=== PATIENT | male | born 1955 | race Caucasian/White ===

== ENCOUNTER 2022-07-12 08:00 | Outpatient (RCR) | payer MEDICARE, BC, SELFPAY ==
--- NOTE | 2022-05-09 15:20 | PT.OPEX ---
PT [place] [facility] Eval PT [facility] Out[facility] Eval Start: 05/09/22 13:11 Freq: Status: Active Protocol: Document 05/09/22 13:13 ENM (Rec: 05/09/22 15:12 ENM [id number]) E-signed By Rita Samayoa, DPT Physical Therapy Outpatient Evaluation Insurance Information Recert Due Date 08/01/22 Insurance Name Medicare B Medical Diagnosis bursitis of right shoulder Treating Diagnosis right shoulder pain, decreased shoulder ROM, hypomobile glenohumeral joint, hypomobility thoracic spine, impaired posture, decreased shoulder strength Referring MD Cazares Subjective Subjective Patient presents to PT with a history of right chronic anterior shoulder pain. He saw in April where an xray was performed, no significant findings on image These show normal glenohumeral joint space without narrowing or osteophytic spurring. No proximal migration of the humeral head. He has a history for previous arthroscopy surgery of right shoulder that included subacromial decompression and distal clavicle excision (, Dr. Fisher). Patient states that the shoulder aches all the time and is uncomfortable in sitting and laying at night. 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 He reports that he doesn't have much strength left in the shoulders. Often he hears the shoulders cracking while he is doing activities. 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 No pain with resisted horizontal abduction Cervical flexion, ext, SB and rot with stiffness throughout but no shoulder pain Strength: shoulder flexion 4-/5 B pains B shoulder abduction 4-/5 B shoulder IR0 4-/5 shoulder ER0 4-/5 Palpation/joint mobility: posterior and inferior glide of GHJ hypomobile bilaterally, stiffer on R compared to L. Significant limitations in posterior capsule in sidelying IR CPA and UPA thoracic spine significant hypomobility + for pain with palpation over ACJ and biceps tendon Special tests: neers + for R anterior shoulder pain medina demarco + for R anterior shoulder pain obriens + for pain with IR that improved with ER speeds - B yergasons - Posture: protracted shoulders and increased thoracic kyphosis Functional Test Performed & Score SPADI: pain 23/50 46% disability 880 10% total 31/130 Assessment Assessment/Impression Patient is a 67 year old male presenting with chronic pain of the right shoulder. Patient had a R shoulder arthroscopy surgery in 2000 which improved shoulder pains for a while. Then 2 years ago pains of the shoulder came back. Since then pains have always been present making it difficult to perform daily activities, sit or sleep at night. Most pain and difficulty with reaching overhead. Upon assessment patients concordant pains brought on with shoulder ROM and palpation of R ACJ/ biceps tendon. Shoulder ROM limited into all planes with pain brought on during active elevation. Patient with significant hypomobility of GHJ with joint mobilizations and tightness of posterior capsule noted. No pains with resisted manual muscle testing . Special testing + for neers, medina demarco and Obriens. Francisco displays a kyphotic posture with notable stiffness of thoracic spine with PA assessment. Symptoms consistent with subacromial pain syndrome. Patient would greatly benefit from skilled PT to address impairments stated above in order to be able to perform all work duties and self cares /ADLS without significant discomfort or difficulty. Primary Functional Limitations reaching, sitting, laying, Plan of Care Rehabilitation Potential Good Physical Therapy Goals In 6-8 visits: 1. Patient will be IND with HEP and self management of symptoms 2. Patient will display pain free shoulder ROM by > 5 degs in order to perform all self cares and ADLS without significant discomfort or difficulty 3. Patient will be able to comfortably lay at night with less than 3/10 shoulder pain for improved sleep hygiene 4. 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 Patient will improve SPADI from 31 to 18 (MDC 13) to demonstrate improvements in QOL Coordination/Communication With Referral Source Treatment Plan/Direct Interventions Electrical Stimulation,Joint Mobilization,Manual Therapy, Neuromuscular Re-ed,Self-Care/ Home Management,Therapeutic Activities,Therapeutic Exercises Frequency/Duration 1x a week for 6 weeks, as needed for 2-3 visits Patient Will Be Discharged From Therapy Completion of LTG(s), Independent w/HEP Evaluation Billing Untimed Code Treatment Minutes 30 Complexity Low Certification Information Initial Certification Date 05/09/22 Ending Certification Date 08/01/22 Provider Signature Shows Agreement With POC & Medical Necessity Physician Comment/Change Comment or Changes Physician NPI Number #
== END 2022-07-14 15:32 | disposition home or self-care (01) ==
PROVIDERS: PCP Nurse Practitioner; Visit Provider Orthopaedic Surgery
DX: M75.51 Bursitis of right shoulder (principal); Z51.89 Encounter for other specified aftercare
CPT/HCPCS: 97110; 97140; 97161

== ENCOUNTER 2025-05-06 12:26 | Inpatient (IN) | payer MEDICARE, BC, SELFPAY ==
[2025-05-06] VITALS (20 sets, daily range): BP systolic 156–183; BP diastolic 61–83; PULSE 51–77; RESP 16–18; TEMP 36.5–36.6; O2SAT 91–98; BMI 34.2; BMI 34.3
--- NOTE | 2025-05-06 13:23 | ED.ABDPAIN ---
HPI - Abdominal Pain General Time Seen by Provider: 13:23 Date Seen: 05/06/25 Chief Complaint: Abdominal Pain Stated Complaint: Abdominal pain Time Seen by Provider: 05/06/25 13:22 Source: patient and RN notes reviewed Mode of arrival: ambulatory Limitations: no limitations History of Present Illness HPI narrative: This 70-year-old male is coming in with complaint of abdominal pain starting early this morning. It woke him early from sleep today. It is central in goes throughout his abdomen. He feels bloated. He was able to be breakfast but is no longer hungry, did not eat lunch. He has had no nausea vomiting, no dysuria, no fevers or chills. He had a normal bowel movement this morning. He states that he has had colonoscopy before he does not believe he is had any prior abdominal surgeries. He has hyperlipidemia, hypertension. He states only takes a multivitamin high blood pressure medicine and cholesterol medicine. MD elicited complaint: abdominal pain Related Data Home Medications ?Medication ?Instructions ?Recorded ?Confirmed amlodipine 5 mg tablet 5 mg PO DAILY 04/25/22 05/06/25 doxazosin 8 mg tablet 8 mg PO HS 04/25/22 05/06/25 lansoprazole 30 mg capsule,delayed 30 mg PO DAILY 04/25/22 05/06/25 release multivitamin (Multiple Vitamins 1 tab PO QAM 04/25/22 05/06/25 tablet) chlorthalidone 25 mg tablet 12.5 mg PO QAM 05/06/25 05/06/25 losartan 100 mg tablet 100 mg PO DAILY 05/06/25 rosuvastatin 10 mg tablet 10 mg PO HS 05/06/25 05/06/25 Allergies Allergy/AdvReac Type Severity Reaction Status Date / Time lisinopril Allergy Unknown Unknown Verified 05/06/25 12:34 Review of Systems Status of ROS Reports: 6 or more systems reviewed and unremarkable except as noted in History and below [facility] Medical History (Updated 05/07/25 @ 11:46 by Rafal Garcia MD) Hyperlipidemia ?E78.5 - Hyperlipidemia, unspecified (ICD-10) Surgical History History of arthroscopy of right shoulder (07/17/01) ?Z98.890 - Other specified postprocedural states (ICD-10) History of arthroscopy of left shoulder (08/14/07) ?Z98.890 - Other specified postprocedural states (ICD-10) History of carpal tunnel surgery of right wrist (06/19/12) ?Z98.890 - Other specified postprocedural states (ICD-10) History of carpal tunnel surgery of left wrist (07/15/15) ?Z98.890 - Other specified postprocedural states (ICD-10) 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) ?Z96.652 - Presence of left artificial knee joint (ICD-10) Status post right knee replacement (03/22/21) ?Z96.651 - Presence of right artificial knee joint (ICD-10) Social History Narrative: Hx tobacco use What is your current living situation?: I presently have a place to live Problems where you live: no known problems In the past 12 months, utilities in danger of being shut off: no In past 12 months, lack of transportation kept you from medical appts, meetings, work, or getting things needed for daily living: no In the past 12 mos, have been you worried that your food would run out before you had money to buy more?: never true In the past 12 mos, the food you bought just didn't last and you didn't have money to buy more?: never true Smoking Status: Former smoker Do you use any of these nicotine containing products: Smokeless Tobacco Nicotine containing products detail: chewing tobacco How often do you have a drink containing alcohol: never How often do you have six or more drinks on one occasion: Never AUDIT-C Alcohol total score: 0 Non-prescribed substance use: denies use How often does anyone, including family, friends and others, physically hurt you: never How often does anyone, including family, friends and others, insult or talk down to you: never How often does anyone, including family, friends and others, threaten you with harm: never How often does anyone, including family, friends and others, scream or curse at you: never Exam Const: Vital Signs, click to edit/add: Vital Signs - 24 hr 05/06/25 14:32 05/06/25 14:33 05/06/25 14:34 Temperature Pulse Rate 60 59 L 60 Pulse Rate [Pulse Oximeter] Respiratory Rate Blood Pressure 177/78 H Blood Pressure [Le ft Arm] Pulse Oximetry 97 94 95 Oxygen Delivery Me thod 05/06/25 14:35 05/06/25 14:45 05/06/25 15:02 Temperature 97.9 F Pulse Rate 59 L 62 Pulse Rate [Pulse Oximeter] Respiratory Rate Blood Pressure 166/78 H Blood Pressure [Le ft Arm] Pulse Oximetry 95 95 Oxygen Delivery Me thod 05/06/25 15:08 05/06/25 15:30 05/06/25 16:00 Temperature Pulse Rate 74 56 L 55 L Pulse Rate [Pulse Oximeter] Respiratory Rate Blood Pressure Blood Pressure [Le ft Arm] Pulse Oximetry 94 91 97 Oxygen Delivery Me thod 05/06/25 16:02 05/06/25 16:15 05/06/25 16:30 Temperature Pulse Rate 63 57 L 57 L Pulse Rate [Pulse Oximeter] Respiratory Rate 16 Blood Pressure 168/83 H Blood Pressure [Le ft Arm] Pulse Oximetry 96 97 96 Oxygen Delivery Ri thod 05/06/25 16:45 05/06/25 17:19 05/06/25 17:19 Temperature 97.7 F Pulse Rate 61 Pulse Rate [Pulse Oximeter] 77 Respiratory Rate 17 17 Blood Pressure Blood Pressure [Le ft Arm] 180/70 H Pulse Oximetry 96 97 97 Oxygen Delivery Me thod Room Air Room Air This 70-year-old male is alert, interactive, no apparent distress. Despite his discomfort he is smiling, very pleasant. Sclera clear, face atraumatic. Neck thicker but note no jugular venous distention or masses. Lungs are clear, good air entry, no wheezing or crackles, no tachypnea, no accessory muscle use. CV regular rate and rhythm, no murmur, normal S1-S2, no S3-S4. Abdomen does look maybe mildly distended, cannot hear any bowel sounds. He has more left upper and lower abdominal tenderness but states he feels the bloating in the discomfort more centrally across his upper abdomen. There is no rebound or guarding per se, no organomegaly or masses noted. No jaundice of skin noted. Documenting provider has reviewed patient's vital signs: yes Course Course ED Course: He is having abdominal pain with bloating, is tender on the left side. Do think he needs CT imaging which will be ordered. He does feel he is uncomfortable enough that he would like some pain management. We will establish an IV, get blood work, have mom pulse oximetry and give him Zofran and morphine for symptom control. I do wonder about diverticulitis with him. If he is colonoscopy is up-to-date makes things like colon cancer or colon masses less likely. He has no urinary symptoms and history does not seem to be consistent with that. We will be checking a lipase and liver enzymes in case of atypical presentation of other intra-abdominal etiologies. Certainly the CT scan in the labs will help point us to our correct diagnosis. Reevaluation(s) Time of Reevaluation #1: 14:04 Reevaluation #1: Nursing staff reports that the just given morphine about 10 minutes ago and patient's pain is escalating, they report he seems quite uncomfortable. We are going to give 0.5 mg IV Dilaudid. We will also have them obtain an EKG. I have done a lab add on troponin just in case this is some atypical vascular presentation. Time of Reevaluation #2: 16:08 Reevaluation #2: Reviewed CT report with patient. He does have duodenitis and pancreatitis. Have ordered 40 mg IV Protonix. His pain is okay right now. He should be hospitalized, will need IV fluids, IV pain management. We did discuss potential complications of abscess and pseudocyst of pancreatitis. Reviewed with them that it is not likely to be surgical, they had questioned if this was a surgical abdominal issue. I said as a general rule it is not. Patient does not drink any alcohol. He does take cholesterol medicine. He still has his gallbladder, he has not had abdominal surgeries. Consultations Consultation #1: Did talk to hospitalist Priya Vora. She accepts patient. Time: 16:14 Vital Signs Vital signs: Initial Vital Signs Temperature 97.9 F 05/06/25 12:30 Temperature Source Temporal Artery Scan 05/06/25 12:30 Pulse Rate 55 L 05/06/25 12:30 Respiratory Rate 18 05/06/25 12:30 Blood Pressure 157/79 H 05/06/25 12:30 Blood Pressure Mean 105 05/06/25 12:30 Blood Pressure Position Sitting 05/06/25 12:30 Pulse Oximetry 97 05/06/25 12:30 Oxygen Delivery Method Room Air 05/06/25 12:30 Vital Signs Temperature 97.9 F 05/06/25 12:30 Pulse Rate 55 L 05/06/25 12:30 Respiratory Rate 18 05/06/25 12:30 Blood Pressure 157/79 H 05/06/25 12:30 Pulse Oximetry 97 05/06/25 12:30 Oxygen Delivery Method Room Air 05/06/25 12:30 Temperature 98.3 F 05/07/25 10:25 Pulse Rate 74 05/07/25 10:25 Respiratory Rate 18 05/07/25 10:25 Blood Pressure 149/66 H 05/07/25 10:25 Pulse Oximetry 94 05/07/25 10:25 Oxygen Delivery Method Room Air 05/07/25 10:25 Medications Administered Medications: Generic Name Dose Route Start Last Admin Trade Name Freq PRN Reason Stop Dose Admin Acetaminophen 650 - 975 mg 05/06/25 20:42 05/07/25 05:17 Acetaminophen 325 Mg Tablet PO 975 mg Q6H PRN Administration Amlodipine Besylate 5 mg 05/07/25 09:00 05/07/25 08:50 Amlodipine 5 Mg Tablet PO 5 mg DAILY AMY Administration Chlorthalidone 12.5 mg 05/07/25 09:00 05/07/25 08:55 Chlorthalidone 25 Mg Tablet PO Not Given On Hold: 05/07/25 10:55 QAM AMY Doxazosin Mesylate 8 mg 05/06/25 21:00 05/06/25 20:19 Doxazosin 4 Mg Tablet PO 8 mg HS AMY Administration Enoxaparin Sodium 40 mg 05/06/25 21:00 05/06/25 20:18 Enoxaparin 40 Mg/0.4 Ml Inj SUBCUT 40 mg HS AMY Administration Hydromorphone HCl 0.2 - 0.5 mg 05/06/25 18:22 05/07/25 00:50 Hydromorphone 0.5 Mg/0.5 Ml Inj IVP 0.5 mg Q2H PRN Administration severe Pain Sodium Chloride 1,000 mls @ 100 mls/hr 05/07/25 08:05 05/07/25 10:00 0.9 % Sodium Chloride 1000 Ml IV 100 mls/hr .Q10H AMY Administration Losartan Potassium 100 mg 05/07/25 09:00 05/07/25 09:04 Losartan Potassium 50 Mg Tablet PO Not Given DAILY AMY Ondansetron HCl 4 mg 05/06/25 18:22 05/06/25 18:37 Ondansetron 2 Mg/Ml Inj IVP 4 mg Q4H PRN Administration Nausea Pantoprazole Sodium 40 mg 05/07/25 09:00 05/07/25 08:52 Pantoprazole Sodium 40 Mg Inj IVP 40 mg DAILY AMY Administration Rosuvastatin Calcium 10 mg 05/06/25 21:00 05/06/25 20:18 Rosuvastatin Calcium 10 Mg Tablet PO 10 mg HS AMY Administration Sodium Chloride 5 ml 05/06/25 21:00 05/07/25 08:52 Sodium Chloride 0.9 % (Flush) 10 Ml Syringe IVF 5 ml BID AMY Administration Discontinued Medications Generic Name Dose Route Start Last Admin Trade Name Freq PRN Reason Stop Dose Admin Hydromorphone HCl 0.5 mg 05/06/25 14:03 05/06/25 14:05 Hydromorphone 0.5 Mg/0.5 Ml Inj IVP 05/06/25 14:04 0.5 mg ONCE ONE Administration Hydromorphone HCl 0.5 mg 05/06/25 17:32 05/06/25 18:06 Hydromorphone 0.5 Mg/0.5 Ml Inj IVP 05/06/25 17:33 0.5 mg ONCE ONE Administration Sodium Chloride 1,000 mls @ 500 mls/hr 05/06/25 13:32 05/06/25 14:36 0.9 % Sodium Chloride 1000 Ml IV 05/06/25 15:31 Infused .Q2H AMY Infusion Acetaminophen 1,000 mg in 100 mls @ 400 mls/hr 05/06/25 14:33 05/06/25 15:00 Acetaminophen Inj IVPB 05/06/25 14:47 Infused ONCE ONE Infusion Sodium Chloride 1,000 mls @ 125 mls/hr 05/06/25 18:22 05/07/25 08:52 0.9 % Sodium Chloride 1000 Ml IV 100 mls/hr .Q8H AMY Infusion Morphine Sulfate 4 mg 05/06/25 13:29 05/06/25 13:48 Morphine 4 Mg/Ml Inj IVP 05/06/25 13:30 4 mg ONCE ONE Administration Ondansetron HCl 4 mg 05/06/25 13:29 05/06/25 13:48 Ondansetron 2 Mg/Ml Inj IVP 05/06/25 13:30 4 mg ONCE ONE Administration Pantoprazole Sodium 40 mg 05/06/25 16:08 05/06/25 16:24 Pantoprazole Sodium 40 Mg Inj IVP 05/06/25 16:09 40 mg ONCE ONE Administration MDM - Abdominal Pain Lab Data Attestation: I reviewed the patient's lab results. Labs: Lab Results 05/06/25 05/06/25 05/06/25 Range/Units 13:31 13:40 14:05 WBC 12.29 H (4.50-11.00) K/uL RBC 4.36 (4.30-5.90) m/uL Hgb 14.6 (13.5-17.5) gm/dL Hct 41.7 (37.0-53.0) % MCV 96 (80-100) fL MCH 34 (26-34) pg MCHC 35 (32-36) gm/dL RDW Coeff of Lisa 13.0 (11.5-15.5) % Plt Count 265 (140-440) K/uL Neut % (Auto) 83.6 H (42.0-72.0) % Lymph % (Auto) 9.0 L (20-44) % [place] % (Auto) 6.7 (0.0-11.0) % Eos % (Auto) 0.4 (0.0-7.0) % Baso % (Auto) 0.2 (0.0-3.0) % Neut # (Auto) 10.30 H (1.7-7.0) K/uL Lymph # (Auto) 1.10 (0.90-2.90) K/uL [place] # (Auto) 0.80 (0.00-0.90) K/UL Eos # (Auto) 0.00 (0.00-0.50) K/uL Baso # (Auto) 0.00 (0.00-0.30) K/uL Abs Immat Gran (auto) 0.00 (0.00-0.30) K/uL Imm/Tot Granulo (auto) 0.1 % Sodium 136 (135-149) mmol/L Potassium 4.0 (3.6-5.1) mmol/L Chloride 101 (96-114) mmol/L Carbon Dioxide 25 (20-32) mmol/L Anion Gap 10 (7-15) mEq/L BUN 20 (7-30) mg/dL Creatinine 1.2 (0.5-1.5) mg/dL Estimated GFR 64 ml/min Glucose 120 H (60-115) mg/dL Lactate 1.1 (0.5-1.9) mmol/L Calcium 9.6 (8.4-10.6) mg/dL Total Bilirubin 0.4 (0.1-1.5) mg/dL AST 43 H (12-35) U/L ALT 37 (4-50) U/L Alkaline Phosphatase 75 (40-150) U/L Troponin I < 0.01 (0.01-0.04) ng/mL C-Reactive Protein < 0.5 L (0.5-1.0) mg/dL Total Protein 7.9 (6.0-8.3) g/dL Albumin 4.5 (3.3-5.0) g/dL Lipase 7171 H (23-300) U/L Lab Acknowledgement Test Added POC Creatinine 1.4 H (0.6-1.3) mg/dl Imaging Data CT scan - abdomen: Attestation: I have reviewed the pertinent imaging results. Radiologist's impression: Patient: ROSELYN BRADLEY Facility:?[facility] Patient ID:?[id number] Site Patient ID:?[id number]. Site :?[id number] Study:?CT-Abdomen/Pelvis W/ 103CC [id number] 2:29:52 PM Ordering Physician:?Mckenna Salgado Final Report: INDICATION: Generalized abdominal pain. TECHNIQUE: CT abdomen and pelvis acquired with 103 cc Omnipaque 350 IV contrast. COMPARISON: None FINDINGS: Mild subpleural ground-glass, likely atelectasis or scarring. Liver is unremarkable. Gallbladder is partially distended. No biliary ductal dilatation. Spleen is unremarkable. There is mild stranding along the head uncinate and proximal body of the pancreas as evidence for pancreatitis. Inflammation extends to the pancreatico duodenal groove. No peripancreatic fluid collection. No main ductal dilatation. The adrenal glands are unremarkable. The kidneys are unremarkable. Urinary bladder is partially distended. Mass effect on the posterior bladder wall from an enlarged prostate. Colonic diverticulosis is seen without CT evidence of acute diverticulitis. The appendix is nondilated. The terminal ileum is nondilated. The remainder of the small bowel is unremarkable. A small hiatal hernia is present. There is focal thickening and stranding of the 3rd and 4th portion of the duodenum. This is evidence for duodenitis. This is likely secondary to pancreatitis although indeterminate. A small amount of fluid is seen tracking along the undersurface of the duodenum and along the right peritoneal reflection (series 2, image 71). No organized drainable fluid collection. No gross free air is seen. No lymphadenopathy is seen. Prostatomegaly is again noted. Small fat containing left inguinal hernia. Extensive atherosclerosis is seen within a nondilated aorta. Bone windows demonstrate no suspicious lytic or sclerotic lesion. No fracture IMPRESSION: 1. Focal thickening and stranding of the head/uncinate of the pancreas as well as the mid and distal duodenum as evidence for pancreatitis and duodenitis. It is uncertain which is primary. A small amount of fluid is seen along the undersurface of the duodenum tracking along the right peritoneal reflection. No organized drainable abscess. No gross free air. Please note that all CT scans at this facility use dose modulation, iterative reconstruction, and/or weight-based dosing when appropriate to reduce radiation dose to as low as reasonably achievable. Dictated by Lit Nava MD @ 05/06/2025 3:20:14 PM (Electronic Signature) ECG Data Attestation: I personally reviewed and interpreted this ECG as follows: (Sinus bradycardia with first-degree AV block, 55 beats per minute. No ischemia, no infarct.) ECG interpretation date: 05/06/25 ECG interpretation time: 14:19 Discharge Plan Discharge Clinical Impression: Pancreatitis, Duodenitis Patient Disposition: Admitted As Inpatient Condition: Improved
--- NOTE | 2025-05-06 13:29 | CRLHL7_ITS ---
For Patients: As a result of the Century Cures Act, medical imaging exams and procedure reports are released immediately into your electronic medical record. You may view this report before your referring provider. If you have questions, please contact your health care provider. INDICATION: Generalized abdominal pain. TECHNIQUE: CT abdomen and pelvis acquired with 103 cc Omnipaque 350 IV contrast. COMPARISON: None FINDINGS: Mild subpleural ground-glass, likely atelectasis or scarring. Liver is unremarkable. Gallbladder is partially distended. No biliary ductal dilatation. Spleen is unremarkable. There is mild stranding along the head uncinate and proximal body of the pancreas as evidence for pancreatitis. Inflammation extends to the pancreatico duodenal groove. No peripancreatic fluid collection. No main ductal dilatation. The adrenal glands are unremarkable. The kidneys are unremarkable. Urinary bladder is partially distended. Mass effect on the posterior bladder wall from an enlarged prostate. Colonic diverticulosis is seen without CT evidence of acute diverticulitis. The appendix is nondilated. The terminal ileum is nondilated. The remainder of the small bowel is unremarkable. A small hiatal hernia is present. There is focal thickening and stranding of the 3rd and 4th portion of the duodenum. This is evidence for duodenitis. This is likely secondary to pancreatitis although indeterminate. A small amount of fluid is seen tracking along the undersurface of the duodenum and along the right peritoneal reflection (series 2, image 71). No organized drainable fluid collection. No gross free air is seen. No lymphadenopathy is seen. Prostatomegaly is again noted. Small fat containing left inguinal hernia. Extensive atherosclerosis is seen within a nondilated aorta. Bone windows demonstrate no suspicious lytic or sclerotic lesion. No fracture IMPRESSION: 1. Focal thickening and stranding of the head/uncinate of the pancreas as well as the mid and distal duodenum as evidence for pancreatitis and duodenitis. It is uncertain which is primary. A small amount of fluid is seen along the undersurface of the duodenum tracking along the right peritoneal reflection. No organized drainable abscess. No gross free air. Please note that all CT scans at this facility use dose modulation, iterative reconstruction, and/or weight-based dosing when appropriate to reduce radiation dose to as low as reasonably achievable. Dictated by Lit Nava MD @ 05/06/2025 3:20:14 PM (Electronically Signed)
[2025-05-06 13:48] LABS: Lactate* 1.1 mmol/L (0.5-1.9)
[2025-05-06] MEDS: ONDANSETRON 2 MG/ML inj 4 MG IVP ×2 (13:48→18:37)
[2025-05-06] MEDS: MORPHINE 4 MG/ML INJ IVP (13:48)
[2025-05-06 13:49] LABS: Hematocrit* 41.7 % (37.0-53.0); Hemoglobin* 14.6 gm/dL (13.5-17.5); Immature Granulocytes Pct Auto 0.1 %; Lymphocytes Absolute Auto 1.10 K/uL (0.90-2.90); Mean Corpuscular HGB Conc 35 gm/dL (32-36); Mean Corpuscular Hemoglobin 34 pg (26-34); Mean Corpuscular Volume 96 fL (80-100); RDW Coefficient of Variation % 13.0 % (11.5-15.5); Red Blood Count* 4.36 m/uL (4.30-5.90); White Blood Count* 12.29 K/uL (4.50-11.00)
[2025-05-06 13:52] LABS: Immature Granulocytes Abs Auto 0.00 K/uL (0.00-0.30); Slide Review Reflex No
[2025-05-06 14:02] LABS: Creatinine, Point-of-Care* 1.4 mg/dl (0.6-1.3)
[2025-05-06 14:09] LABS: Albumin* 4.5 g/dL (3.3-5.0); Chloride* 101 mmol/L (96-114); Potassium* 4.0 mmol/L (3.6-5.1); Sodium* 136 mmol/L (135-149)
[2025-05-06 14:12] LABS: Alanine Aminotransferase* 37 U/L (4-50); Alkaline Phosphatase* 75 U/L (40-150); Anion Gap 10 mEq/L (7-15); Aspartate Amino Transferase* 43 U/L (12-35); Bilirubin Total* 0.4 mg/dL (0.1-1.5); Blood Urea Nitrogen* 20 mg/dL (7-30); Calcium* 9.6 mg/dL (8.4-10.6); Carbon Dioxide* 25 mmol/L (20-32); Creatinine* 1.2 mg/dL (0.5-1.5); Estimated Glomerular Filt Rate 64 ml/min; Glucose* 120 mg/dL (60-115); Total Protein* 7.9 g/dL (6.0-8.3)
--- OUTSIDE RECORDS SUMMARY | 2025-05-06 14:24 | XMS_ITS | Encounter Summary ---
Author Organization [facility] Address [address] [place] [address] Care Team Providers Care Chassis Inspector Name Role Phone Karishma Forrester P.A.-C. Primary Care Pro vider Reason for Referral * Outpatient (Routine) - Authorized Specialty Diagnoses / Procedures Referred By Contjosé t Referred To Contact Karishma Forrester MPAS, P.A.-C. [address] [place] [phone] Phone: tel: fax: [facility] Region Referral ID Status Reason Start Date Expiration Date V isits Requested Visits Authorized [id number] Authorized 03/24/2025 09/23/2026 1 1 Scheduling Instructions Nurse AWV Do not schedule prior to due date to ensure insurance coverage Visit: Medicare Annual Wellness due on 02/28/2024. Encounter Details Date Type Department Care Team (Late st Contact Info) Description 03/24/2025 Orders Only [facility] Karishma Forrester MPAS, P.A.-Yeny [address] [place] [phone] Social History Tobacco Use Types Packs/Day Years Used Date Smoking Tobacco: Former Cigarettes 0.5 30 0 08/20/1970 - 08/20/2000 Smokeless Tobacco: Current Chew Alcohol Use Standard Drinks/Week Comments No 0 (1 standard drink = 0.6 oz pure alcohol) History of heavy alcohol use. Sober since 1981. [facility] Utilities Answer Date Recorded In the past 12 months has th e [employer], gas, oil, or water company threatened to shut off services in your home? No 02/27/2024 Humiliation, Afraid, Rape, and Kick questionnair e Answer Date Recorded Within the last year, have y ou been afraid of your partner or ex-partner? No 02/19/2023 Within the last year, have y ou been humiliated or emotionally abused in other ways by your partner or ex-partner? No Within the last year, have y ou been kicked, hit, slapped, or otherwise physically hurt by your partner or ex-partner? No 02/19/2023 Within the last year, have y ou been raped or forced to have any kind of sexual activity by your partner or ex-partner? No 02/19/2023 Hunger Vital Sign Answer Date Recorded Within the past 12 months, y ou worried that your food would run out before you got the money to buy more. Never true 02/27/20 24 Within the past 12 months, t he food you bought just didn't last and you didn't have money to get more. Never true 02/27/2024 PRAPARE - Transportation Answer Date Re corded In the past 12 months, has l ack of transportation kept you from medical appointments or from getting medications? No 02/17 In the past 12 months, has l ack of transportation kept you from meetings, work, or from getting things needed for daily living? No 02/27/2024 Depression Answer Date Recor ded PHQ-9 Total Score (max 27) 0 09/25 Housing Stability Answer Date Recorded What is your living situation today? I have a [facility] place to live 02/27/2024 Education Answer Date Recorded What is the highest level of school you have completed or the highest degree you have received? 12th grade 09/21/2019 Sex and Gender Information Value Date Recorded Sex Assigned at Male 11/16/2017 9:03 AM CDT Legal Sex Male 9:55 AM WELDING OPERATOR Gender Identity Male 11/16/2017 9:03 AM CDT Sexual Orientation Straight 11/16/2017 9: 03 AM CDT documented as of this encounter Plan of Treatment Scheduled Referrals Name Type Priority Associated Diagnoses Orde r Schedule Primary Care nurse visit (clinic) - [facility] Region; Medicare Annual Wellness Outpatient Referral Routine Expected: 04/21/2025, Expires: 09/10/2025 documented as of this encounter Visit Diagnoses Not on filedocumented in this encounter Additional Health Concerns Assessment Noted Time PHQ-9 Depression Total Score: 0 09/25/19 20 8:13 AM WELDING OPERATOR documented as of this encounter Care Teams Chassis Inspector Relationship Specialty Start Date End Date Karishma Forrester MPAS, P.A.-C. [address] [place] [address] [place] [phone] PCP - General Internal Medicine 08/15/22 documented as of this encounter
--- OUTSIDE RECORDS SUMMARY | 2025-05-06 14:24 | XMS_ITS | Encounter Summary ---
Author Organization [facility] Address [address] [place] [address] Care Team Providers Care Aircraft Engine Technician Name Role Phone Karishma Forrester P.A.-C. Primary Care Pro vider Reason for Visit * Reason Comments Med Refill Encounter Details Date Type Department Care Team (Late st Contact Info) Description 04/10/2025 Refill Department of Community Internal Medicine in [place], [place] [address] [place] [phone] Karishma Forrester MPAS, P.A.-CLizandro [address] [place] [phone] Med Refill Social History Tobacco Use Types Packs/Day Years Used Date Smoking Tobacco: Former Cigarettes 0.5 30 0 08/20/1970 - 08/20/2000 Smokeless Tobacco: Current Chew Alcohol Use Standard Drinks/Week Comments No 0 (1 standard drink = 0.6 oz pure alcohol) History of heavy alcohol use. Sober since 1981. [facility] Utilities Answer Date Recorded In the past 12 months has [facility] [place] [email or web address], gas, oil, or water [employer] threatened to shut off services in your [...] your living situation today? I have a [facility] place to live 02/27/2024 Education Answer Date Recorded What is the highest level of school you have completed or the highest degree you have received? 12th grade 09/21/2019 Sex and Gender Information Value Date Recorded Sex Assigned at Male 11/16/2017 9:03 AM CDT Legal Sex Male 9:55 AM LASER BEAM TRIM OPERATOR Gender Identity Male 11/16/2017 9:03 AM CDT Sexual Orientation Straight 11/16/2017 9: 03 AM CDT documented as of this encounter Miscellaneous Notes * Telephone Encounter - Carly Strong, CLizandroMYonatan - 04/13/2025 3:59 PM CDT SUBJECTIVE CHIEF COMPLAINT / REASON FOR CALL Med Refill Information Discussed Called and informed patient of prescription sent to pharmacy per Karishma Forrester P.A.-C. Patient will call to schedule appointments. PLAN Disposition/Recommendation: patient to schedule appointment and will call Information/Education: patient/caller able to teach back Caller agreeable to plan of care: yes The following references were used: provider Karishma Forrester P.A.-C. documented in this encounter Plan of Treatment Not on file documented as of this encounter Visit Diagnoses Not on filedocumented in this encounter Additional Health Concerns Assessment Noted Time PHQ-9 Depression Total Score: 0 09/25/19 20 8:13 AM LASER BEAM TRIM OPERATOR documented as of this encounter Care Teams Aircraft Engine Technician Relationship Specialty Start Date End Date Karishma Forrester MPAS, Clarence. [address] [place] [phone] PCP - General Internal Medicine 08/15/22 documented as of this encounter
--- OUTSIDE RECORDS SUMMARY | 2025-05-06 14:24 | XMS_ITS | Encounter Summary ---
Author Organization [facility] Address [address] [place] [address] Care Team Providers Care Field Laborer Name Role Phone Karishma Forrester P.A.-C. Primary Care Pro vider Reason for Visit * Reason Onset Date Comments Health Maintenance 04/15/2025 Encounter Details Date Type Department Care Team (Latest Contact Info) Description 04/15/2025 Clinical Communication Department of Community Internal Medicine in [place], [place] [address] [place] [phone] Karishma Forrester MPAS PLizandroALizandro-CLizandro [address] [place] [phone] Health Maintenance Social History Tobacco Use Types Packs/Day Years Used Date Smoking Tobacco: Former Cigarettes 0.5 30 0 08/20/1970 - 08/20/2000 Smokeless Tobacco: Current Chew Alcohol Use Standard Drinks/Week Comments No 0 (1 standard drink = 0.6 oz pure alcohol) History of heavy alcohol use. Sober since 1981. [facility] Utilities Answer Date Recorded In the past 12 months has e [employer], gas, oil, or water [employer] threatened to shut off services in your [...] your living situation today? I have a [facility] place to live 02/27/2024 Education Answer Date Recorded What is the highest level of school you have completed or the highest degree you have received? 12th grade 09/21/2019 Sex and Gender Information Value Date Recorded Sex Assigned at Male 11/16/2017 9:03 AM CDT Legal Sex Male 9:55 AM SPREADER BOX OPERATOR Gender Identity Male 11/16/2017 9:03 AM CDT Sexual Orientation Straight 11/16/2017 9: 03 AM CDT documented as of this encounter Miscellaneous Notes * Telephone Encounter - Rox Rodriguez, L.P.N. - 04/15/2025 10:22 AM CDT I reached out to the patient today via phone call and letter and I was unable to reach the patient.This is the 1st contact by the [facility] team to schedule preventive care services. The preventive care topics I outreached about include: Annual Wellness Visit Physical Basic Metabolic Panel The outcome of this communication includes: Left Message and Sent Letter The [facility] team will contact the patient again next time they're due for preventive care. Next Primary Care appointment: does not have a visit scheduled in Primary Care Last appointment with their PCP: 03/04/2024 Additional services offered: None Rox Rosas LPN Preventative Health Specialist documented in this encounter Plan of Treatment Not on file documented as of this encounter Visit Diagnoses Not on filedocumented in this encounter Additional Health Concerns Assessment Noted Time PHQ-9 Depression Total Score: 0 09/25/19 20 8:13 AM SPREADER BOX OPERATOR documented as of this encounter Care Teams Field Laborer Relationship Specialty Start Date End Date Karishma Forrester MPAS, P.A.-C. [address] [place] [phone] PCP - General Internal Medicine 08/15/22 documented as of this encounter
--- OUTSIDE RECORDS SUMMARY | 2025-05-06 14:24 | XMS_ITS | Encounter Summary ---
Author Organization [facility] Address [address] [place] [address] Care Team Providers Care Trombone Slide Assembler Name Role Phone Karishma Forrester P.A.-C. Primary Care Pro vider Reason for Visit * Reason Comments Med Refill Encounter Details Date Type Department Care Team (Late st Contact Info) Description 05/02/2025 Refill Department of Community Internal Medicine in [place], [place] [address] [place] [phone] Karishma Forrester MPAS, P.A.-CLizandro [address] [place] [phone] Med Refill Social History Tobacco Use Types Packs/Day Years Used Date Smoking Tobacco: Former Cigarettes 0.5 30 0 08/20/1970 - 08/20/2000 Smokeless Tobacco: Current Chew Alcohol Use Standard Drinks/Week Comments No 0 (1 standard drink = 0.6 oz pure alcohol) History of heavy alcohol use. Sober since 1981. [facility] Utilities Answer Date Recorded In the past 12 months has [facility] [employer], gas, oil, or water [employer] threatened to shut off services in your [...] your living situation today? I have a [facility] place to live 02/27/2024 Education Answer Date Recorded What is the highest level of school you have completed or the highest degree you have received? 12th grade 09/21/2019 Sex and Gender Information Value Date Recorded Sex Assigned at Male 11/16/2017 9:03 AM CDT Legal Sex Male 9:55 AM TOOL DESIGN CHECKER Gender Identity Male 11/16/2017 9:03 AM CDT Sexual Orientation Straight 11/16/2017 9: 03 AM CDT documented as of this encounter Miscellaneous Notes * Telephone Encounter - Carly Strong, CLizandroMYonatan - 05/05/2025 3:57 PM CDT SUBJECTIVE CHIEF COMPLAINT / REASON FOR CALL Med Refill Information Discussed Called and informed patient of prescription sent to pharmacy per Karishma Forrester P.A.-C. Patient is due to schedule labs and appointment and will call. PLAN Disposition/Recommendation: patient to schedule appointment and [...] Total Score: 0 09/25/19 20 8:13 AM TOOL DESIGN CHECKER documented as of this encounter Care Teams Trombone Slide Assembler Relationship Specialty Start Date End Date Karishma Forrester MPAS, P.A.-C. [address] [place] [phone] PCP - General Internal Medicine 08/15/22 documented as of this encounter
--- OUTSIDE RECORDS SUMMARY | 2025-05-06 14:25 | XMS_ITS | Clinical Summary ---
Author Organization [facility] Address [address] [place] [address] Care Team Providers Care Educational Psychology Professor Name Role Phone Karishma Forrester P.A.-C. Primary Care Pro vider Source Comments Patient records contain information from all sites at [facility]. For routine questions regarding patient records, call [phone] during business hours, M-F 8:00 AM - 5:00 PM Central Time. Record requests for emergency care only can be directed to [phone] at any time.[facility] Allergies Active Allergy Reactions Criticality Noted Date Comments Lisinopril Shortness of breath (Reselect Reaction) 10/22/2011 Medications MULTIVIT WITH MINERALS/LUTEIN (MULTIVITAMIN 50 PLUS ORAL) Take 1 tablet by mouth daily. 1 Active acetaminophen (TYLENOL) 500 mg tablet Every 4-6 Hours as needed 2 Active rosuvastatin (Crestor) 10 mg tablet TAKE ONE TABLET BY MOUTH ONCE EVERY DAY . 90 tablet 3 5 Active amLODIPine (Norvasc) 5 mg tabletIndicatio ns:Hypertension Essential Primary TAKE ONE TABLET BY MOUTH EVERY DAY 90 tablet 3 5 Active losartan (Cozaar) 100 mg tablet TAKE ONE TABLET BY MOUTH ONCE EVERY DAY . 90 tablet 3 5 Active doxazosin (Cardura) 8 mg tabletIndicatio ns:Benign Prostatic Hyperplasia Hypertrophy With Obstruction TAKE ONE TABLET BY MOUTH AT BEDTIME . 90 tablet 3 5 Active chlorthalidone (Hygroton) 25 mg tablet Take 0.5 tablets (12.5 mg total) by mouth daily. 15 tablet 5 Active lansoprazole (Prevacid) [address] capsule Take 1 capsule (30 mg total) by mouth daily. Patient needs Office Visit for further refills. 90 capsule 5 Active chlorthalidone (Hygroton) 25 mg tablet take one-half tablet by mouth every day 45 tablet 3 4 025 Discontinued lansoprazole (Prevacid) [address] capsule TAKE ONE CAPSULE BY MOUTH ONCE EVERY DAY 90 capsule 3 4 025 Discontinued chlorthalidone (Hygroton) 25 mg tablet TAKE ONE-HALF TABLET [12.5MG] BY MOUTH EVERY DAY 45 tablet 5 025 Discontinued Active Problems Patient Care Coordination No te Formatting of this note migh t be different from the original. 11/16/2017- Release of information signed for patient's , Ploly. This will be good for life unless the patient would chose to revoke it. Problem Noted Date Diagnosed Date Microalbuminuria 10/21/2023 Apnea Sleep Obstructive 12/06/2021 Overview (03/27/2022): 2021 Watch-PAT home sleep apnea test revealed inadequate criteria for diagnosis of obstructive sleep apnea. His probable AHI was 3.0 and probable RDI of 6.2. His snoring was measured at 30.8% of time. Consider repeating sleep study if he gains weight, develops new symptoms concerning for JOEL. Assessment & Plan (03/27/2022 10:06 AM CDT): Watch-PAT home sleep apnea test. Said study revealed inadequate criteria for diagnosis of obstructive sleep apnea. His probable AHI was 3.0 and probable RDI of 6.2. 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 Assessment & Plan (03/27/2022 10:09 AM CDT): --recommend 5-10% weight loss, diet and exercise modifications --repeat A1C/fasting glucose and lipids in 3 months after lifestyle change Assessment & Plan (10/12/2020 1:27 AM REGIONAL DIRECTOR OF ADMISSIONS): --recommend 5-10% weight loss, diet and exercise modifications --repeat A1C/fasting glucose and lipids in 3 months after lifestyle change Elevated Prostate-Specific Antigen 11/24/2017 Overview (10/12/2020): Images from the original note were not included. Assessment & Plan (10/12/2020 1:03 AM REGIONAL DIRECTOR OF ADMISSIONS): Elevated PSA due to prostatitis in 2016. 09/28 PSA in normal limits. Repeat in 1 year. Gastroesophageal Reflux Disease 11/24/2017 Overview (12/12/2021): He has been on a PPI at least since 2006. Omeprazole pre-2006 to 2014. Lansoprazole 30mg daily since 2014. He was diagnosed with H. Pylori in 2006 via gastric biopsy and was treated. EGD in 2014 for symptom of bloating was normal. EGD at [facility] on 09/28/2014, which was unremarkable. GI discussed with him about aerophagia and recommended sleep study at that time. Periodic surveillance for nutrient deficiencies related to PPI therapy: mag, iron, calcium, B12 Assessment & Plan (03/27/2022 10:08 AM CDT): --continue omeprazole --check phos, Mag, CBC, ferritin Assessment & Plan (10/12/2020 1:08 AM REGIONAL DIRECTOR OF ADMISSIONS): Assess GERD at follow up. Polyp Colon Adenomatous Personal History 017 Overview (03/03/2024): Colonoscopy 01/2018, h/o tubular adenoma. Colonoscopy completed April 08, 2023 with a recommended 7 year follow-up Assessment & Plan (10/12/2020 1:25 AM REGIONAL DIRECTOR OF ADMISSIONS): Repeat colonoscopy 01/2023 Hypertensive Chronic Kidney Disease With Stage 1 Through Stage 4 Chronic Kidney Disease, Or Unspecified Chronic Kidney Disease 11/19/2016 Assessment & Plan (03/27/2022 10:05 AM CDT): If he continues to have dizziness/lightheadedness with moving chlorthalidone to the morning, then stop chlorthalidone and monitor AM/PM Bps for 2-3 days. It's possible Bps have improved right now as he is more active and the post op knee pain has resolved. We could consider increasing amlodipine from 5 to 10mg to have some increased BP effect if the chlorthalidone 12.5mg is too effective even when taking in the morning apart from the other BP meds. Target SBP: 110-130. Assessment & Plan (10/12/2020 1:16 AM REGIONAL DIRECTOR OF ADMISSIONS): Bps <140/90. He has CKD which may be related to hypertension. Continue amlodipine 5mg daily, Hctz 25mg daily. Check urine microalbumin. If present, add RIMMA/ARB Benign Prostatic Hyperplasia Hypertrophy With Ob struction 11/19/2016 Overview (12/12/2021): Doxazosin 8mg started 2010 for BPH. Assessment & Plan (12/12/2021 2:56 PM CDT): Continue Doxazosin 8mg daily at bedtime. Assessment & Plan (10/12/2020 1:03 AM REGIONAL DIRECTOR OF ADMISSIONS): Minimal symptoms. Continue Doxazosin 8mg daily at bedtime. Hyperlipidemia 11/19/2016 Overview (03/27/2022): ASCVD risk 20% 09/2020. Stress Echo 12/2020 negative for ischemia. Rosuvastatin 10mg started 03/2022. Assessment & Plan (10/12/2020 1:24 AM REGIONAL DIRECTOR OF ADMISSIONS): I recommend statin therapy and we will address this at follow up. LDL 151, ASCVD risk 20% Occlusion And Stenosis Bilateral Carotid Arterie s 07/31/2011 Overview (08/09/2023): US Carotid 2007 IMPRESSION: 1. No evidence of hemodynamically significant stenosis within the ICAs (<50%). 2. Mild to moderate atherosclerotic plaque in both carotid bulbs extending into the ICAs bilaterally but left greater than right. US Carotid 2022 IMPRESSION: Right: Mild, 0-49%, ICA stenosis. Left: Mild, 0-49%, ICA stenosis. Asymptomatic. Dysfunction Erectile 02/11/2011 Nicotine Dependence Chewing Tobacco 02/11/2011 Resolved Problems Problem Noted Date Diagnosed Date Resolved Date Diabetes Mellitus Type 2 08/30/202301/2024 Weakness General 01/10/2023 08/30/2023 Snoring 12/27/2021 03/27/2022 Chronic Kidney Disease (CKD) , Stage 3a Glomerular Filtration Rate (GFR) 45 To 59 10/04/2021 10/04/2021 Chronic Kidney Disease Stage 2 Glomerular Filtration Rate 60 To 89 10/12/2020 03/20/2023 Overview (02/10/2021): Cr 1.1, GFR 60s, Microalbuminuria (01/07). Assessment & Plan (10/12/2020 1:18 AM REGIONAL DIRECTOR OF ADMISSIONS): Optimize Bps, annual labs, eval for proteinuria, avoid NSAIDs/nephrotoxic meds Nicotine Dependence Other To bacco Product With Other Nicotine Induced Disorder 01/30/2018 Chronic Obstructive Pulmonary Disease 01/30/2018 12/12/2021 Overview (12/12/2021): No evidence for COPD on PFTs 11/2020. Assessment & Plan (10/12/2020 1:17 AM REGIONAL DIRECTOR OF ADMISSIONS): PFTs to further evaluate. This could be the cause of BOOTH. He is not currently on inhaler therapy. Hemorrhoids 11/24/2017 10/12/2020 Paresthesia 11/24/2017 10/05/2020 Overview (11/24/2017): Both feet Health Maintenance Examination Adult 11/24/2017 10/12/2020 Sweating 11/24/2017 10/12/2020 Polyp Colon Adenomatous 11/24/201709/21 Impaired Fasting Glucose 11/24/2017 Tobacco Use 11/24/2017 03/16/2021 High Risk Medication 11/24/2017 022 Diverticulosis Colon 11/27/2016 021 Fracture Clavicle Closed Initial 06/10/2012 09/25/2019 Reflux Esophageal 06/10/2012 10/12/2020 Infection Helicobacter Pylori 06/10/2012 10/12/2020 Overview (11/19/2017): He was treated with antibiotics for 2 weeks. Carpal Tunnel Syndrome 10/03/201112/12 Stenosis Carotid Artery Right 07/31/2011 03/20/2023 Duodenal Ulcer Unspecified A s Acute Or Chronic Without Hemorrhage Or Perforation 05/09/2010 03/20/2023 Encounters Date Type Department Care Team Description 05/02/2025 Refill [facility] in [address] [phone] Karishma Forrester MPAS, P.A.-C. Med Refill 04/15/2025 Clinical Communication [facility] in [address] [phone] Karishma Forrester MPAS, P.A.-C. Health Maintenance 04/10/2025 Refill [facility] in [address] [phone] Karishma Forrester MPAS, P.A.-C. Med Refill 03/24/2025 Orders Only [facility] Karishma Forrester MPAS, P.A.-C. from Last 3 Months Immunizations Immunization Administration Dates Next Due PCV13 09/14/2014 PCV20 03/04/2024, 4(Deferred: Patient decision) RZV (SHINGRIX) 11/02/2023(Deferred: Patient decision - will do at pharmacy per medicare) SARS-COV-2 (COVID-19) - MODERNA(Discontinued) 11/02/2023(Deferred: Patient decision) SARS-COV-2 (COVID-19) - PFIZ ER (Discontinued)(12 years or older) 09/16/2021 Td Preservative Free (TENIVA C, DECAVAC) 08/15/2004 Tdap 08/01/2023(Deferred: Patient decision - Will do at pharmacy per medicare),06/17/2013 influenza trivalent high dos e (HD)(PF) 11/02/2023(Deferred: Patient decision) Family History Medical History Relation Name Comments Coronary artery bypass graft Brother 1 Mitchell Coronary artery disease Brother 1 Mitchell Heart attack Brother 1 Mitchell No Known Problems Brother 2 Liang Pulmonary embolism Brother 3 Diogenes No Known Problems Daughter Early Father Khang garcia Rheum arthritis Mother No Known Problems Sister Marine No Known Problems Son 1 No Known Problems Son 2 Relation Name Status Comments Brother 1 Mitchell Brother 2 Liang Alive Brother 3 Diogenes Daughter Alive Father Mother Sister Marine Alive Son 1 Alive Son 2 Alive Social History Tobacco Use Types Packs/Day Years Used Date Smoking Tobacco: Former Cigarettes 0.5 30 0 08/20/1970 - 08/20/2000 Smokeless Tobacco: Current Chew Alcohol Use Standard Drinks/Week Comments No 0 (1 standard drink = 0.6 oz pure alcohol) History of heavy alcohol use. Sober since 1981. [facility] Utilities Answer Date Recorded In the past 12 months has [facility] [employer], gas, oil, or water [employer] threatened to shut off services in your [...] your living situation today? I have a [facility] place to live 02/27/2024 Education Answer Date Recorded What is the highest level of school you have completed or the highest degree you have received? 12th grade 09/21/2019 Sex and Gender Information Value Date Recorded Sex Assigned at Male 11/16/2017 9:03 AM CDT Legal Sex Male 9:55 AM REGIONAL DIRECTOR OF ADMISSIONS Gender Identity Male 11/16/2017 9:03 AM CDT Sexual Orientation Straight 11/16/2017 9: 03 AM CDT Last Filed Vital Signs Vital Sign Reading Time Taken Comments Blood Pressure 114/71 03/04/2024 8:46 AM CDT Pulse 64 03/04/2024 8:46 AM CDT Temperature 36.5 C (97.7 F) 03/04/2024 8:46 AM CDT Respiratory Rate 20 11/20/2023 3:24 PM CDT Oxygen Saturation 98% 10/04/2021 10:15 AM REGIONAL DIRECTOR OF ADMISSIONS Inhaled Oxygen Concentration - - Weight 96 kg (211 lb 10.3 oz) 03/04/2024 8:46 AM CDT Height 168 cm (5' 6.14) 03/04/2024 8:46 AM CDT Body Mass Index 34.01 03/04/2024 8:46 AM CDT Plan of Treatment Health Maintenance Due Date Last Done Comments CT Colonography 1955 Cologuard 1955 Zoster Vaccines (1 of 2) 2003 RSV vaccine - (32-36 weeks) or 60+ years (1 - Risk 60-74 years 1-dose series) 2013 DTaP,Tdap,and Td Vaccines (2 - Td or Tdap) 06/17/2023 06/17/2013, 08/15/2004 Visit: Medicare Annual Wellness 02/28/2024 02/26/2023 Depression Screening (Annual PHQ-2) 08/20/2024 Fall Risk Screen (Annual) 08/20/2024 Creatinine Level (Kidney Function Test) 01/30/2025 01/31/2024, 10/19/2023, 02/23/2023, Additional history exists Fasting Glucose for Diabetes Screening 01/30/2025 01/31/2024, 01/31/2024, 10/19/2023, Additional history exists Potassium Level 01/30/2025 01/31/2024, 03/0 08/2023, 02/23/2023, Additional history exists Sodium Level 01/30/2025 01/31/2024, 03/0 08/2023, 02/23/2023, Additional history exists Office Visit for Blood Pressure Check / Re-check 03/04/2025 03/04/2024 Visit: Chronic Disease, age 18+ 03/04/2025 03/04/2024, 08/01/2023 COVID-19 Vaccine ( season) 2025 09/16/2021, 04/07/2021, 03/17/2021 Influenza Vaccine (#1) 2025 Lipid (Cholesterol) Screening 01/30/2029 01/31/2024, 06/30/2022, 05/17/2021, Additional history exists Colonoscopy 04/10/2030 04/10/2023, 01/19 (Performed elsewhere), 07/31/2012, Additional history exists Colorectal Cancer Surveillance 04/10/2030 Abdominal Aortic Aneurysm (AAA) Screen Completed 11/14/2007 Hepatitis C Screening Completed 11/27/2016 Pneumococcal vaccine (50+ years) Completed 03/04/2024, 09/14/2014 IPV Vaccines Aged Out No longer eligi ble based on patient's age to complete this topic Medical Devices Implanted Type Area Fashion Show Director Device Identifier Shelf Expiration Date Model / Serial / Lot Knee Implant Knee Implant Bilateral : Knee Procedures Procedure Name Priority Date/Time Associated Diagnosis Comments LIPID PANEL, S Routine 01/31/2024 8:40 AM CDT Hyperlipidemia BASIC METABOLIC PANEL, S/P Routine 01/31/2024 8:40 AM CDT Hypertension And Chronic Kidney Disease Stage 2 HCV AB SCRN W/REFLEX TO HCV PCR, S Routine 11/27/2016 10:43 AM CDT COLONOSCOPY Routine 07/31/2012 8:26 AM REGIONAL DIRECTOR OF ADMISSIONS CT ABDOMEN PELVIS ENTEROGRAPHY WITH IV CONTRAST Routine 11/14/2007 3:58 PM CDT from Last 3 Months or Most Recently Relevant to Health Maintenance Results * (ABNORMAL) Lipid Panel (01/31/2024 8:40 AM CDT) Triglycerides 156(H) mg/dL 01/31/2024 1:30 PM CDT OWAT Comment: ----REFERENCE VALUE---- Normal: <150 mg/dL Borderline High: 150-199 mg/dL High: 200-499 mg/dL Very High: > or =500 mg/dL Cholesterol, Total 125 mg/dL 2023 1:30 PM CDT OWAT Comment: ----REFERENCE VALUE---- Desirable: < 200 mg/dL Borderline High: 200 - 239 mg/dL High: > or = 240 mg/dL Cholesterol, LDL, Calculated 62 mg/dL 01/31/2024 1:30 PM CDT OWAT Comment: ----REFERENCE VALUE---- Desirable: <100 mg/dL Above Desirable: 100-129 mg/dL Borderline High: 130-159 mg/dL High: 160-189 mg/dL Very High: >=190 mg/dL ----ADDITIONAL INFORMATION---- LDL cholesterol calculated using the Bond/NIH equation. Cholesterol, HDL 36(L) >=40 mg/dL 01/31/20 24 1:30 PM CDT OWAT Cholesterol, Non-HDL, Calculated 89 mg/dL 01/31/2024 1:30 PM CDT OWAT Comment: ----REFERENCE VALUE---- Desirable: <130 mg/dL Above Desirable: 130-159 mg/dL Borderline High: 160-189 mg/dL High: 190-219 mg/dL Very High: > or =220 mg/dL Fasting (8 HR or more) No 01/31/2024 8:40 AM CDT OWAT Blood (Blood, Venous) 01/31/2024 8:40 AM CDT 01/31/2024 12:45 PM CDT Karishma Forrester MPAS, P.A.-C. LAB BLOOD ADD-ON Final Result [facility] [address] [place] [address], [facility] OWAT [facility] [place] [address] [place] [address] * (ABNORMAL) Basic Metabolic Panel (01/31/2024 8:40 AM CDT) Potassium, P 4.0 3.6 - 5.2 mmol/L 01/31/2024 1:30 PM CDT OWAT Sodium, P 138 135 - 145 mmol/L 01/31/2024 1:30 PM CDT OWAT Chloride, P 103 98 - 107 mmol/L 01/31/2024 1:30 PM CDT OWAT Bicarbonate, P 23 22 - 29 mmol/L 01/31/2024 1:30 PM CDT OWAT Anion Gap, P 12 7 - 15 01/31/2024 1:30 PM CDT OWAT BUN (Blood Urea Nitrogen), P 22 8 - 24 mg/dL 01/31/2024 1:30 PM CDT OWAT Creatinine 1.29 0.74 - 1.35 mg/dL 01/31/2024 1:30 PM CDT OWAT Estimated GFR (eGFR) 59(L) >=60 mL/min/BSA 01/31/2024 1:30 PM CDT OWAT Comment: Estimated GFR calculated using the 2020 CKD_EPI creatinine equation. Calcium, Total, P 9.1 8.8 - 10.2 mg/dL 01/31/2024 1:30 PM CDT OWAT Glucose, P 134 70 - 140 mg/dL 01/31/2024 1:30 PM CDT OWAT Blood (Blood, Venous) 01/31/2024 8:40 AM CDT 01/31/2024 12:45 PM CDT us Karishma DOLAN, P.A.-C. LAB BLOOD ADD-ON Final Result [facility] [address] [place] [address], [facility] OWAT [facility] [place] [address] [place] [address] * HCV Ab w/Reflex to HCV PCR, S (medicare) (11/27/2016 10:43 AM CDT) HXHCV Ab [facility] Negative Negative POWERCHART Comment: Cegvnd-cl-zracnr ratio is <1.00. Test Performed by: [place] [id number] Blood 11/27/2016 10:4 3 AM CDT us Brea Adrian M.D. LAB MICROBIOLOGY - BLOOD ORDERAB LES Final Result Performing Organization Address City/[facility]/ZIP Co de Phone Number POWERCHART * Colonoscopy (07/31/2012 8:26 AM REGIONAL DIRECTOR OF ADMISSIONS) 07/31/2012 8:26 AM REGIONAL DIRECTOR OF ADMISSIONS us Mitchell Adams M.D., M.H.P.E. GI PROCEDURE ORD ERABLES Final Result [facility] [address] [place] [address], [facility] * CT Abdomen Pelvis Enterography with IV Contrast (11/14/2007 3:58 PM CDT) Anatomical Region Laterality Modality Abdomen, Pelvis N/A Computed Tomogra phy 11/14/2007 3:58 PM CDT Narrative 11/14/2007 4:41 PM CDT 14-Nov-2007 15:58:00 Exam: CT Ent Abd w - Pelvis w Indications: ct enterography - pain^abdominal r/o sm bowel or ORIGINAL REPORT - 14-Nov-2007 16:41:00 Contrast-enhanced CT enterography. No comparisons. Sigmoid diverticula without diverticulitis. Negative small bowel. Tiny urachal remnant off the bladder. Prostatic enlargement. Vascular calcifications. The pancreas is unremarkable. Degenerative changes lumbosacral interval. Electronically signed by: Gustavo RODARTE [id number] 14-Nov-2007 16:41 Linn Yuan MD. [id number] 14-Nov-2007 16:41 Procedure Note Mitchell Duong M.D. - 11/19/2017 14-Nov-2007 15:58:00 Exam: CT Ent Abd w - Pelvis w Indications: ct enterography - pain^abdominal r/o sm bowel or ORIGINAL REPORT - 14-Nov-2007 16:41:00 Contrast-enhanced CT enterography. No comparisons. Sigmoid diverticula without diverticulitis. Negative small bowel. Tinyurachal remnant off the bladder. Prostatic enlargement. Vascularcalcifications. The pancreas is unremarkable. Degenerative changeslumbosacral interval. Electronically signed by: Gustavo RODARTE [id number] 14-Nov-2007 16:41 Linn Yuan MD. [id number] 16:41 Stew La M.D. IM CT PROCEDURES Final Result from Last 3 Months or Most Recently Relevant to Health Maintenance Insurance MEDICARE [facility] Care Teams Educational Psychology Professor Relationship Specialty Start Date End Date Karishma Forrester MPAS, P.A.-C. [address] [place] [address] [place] [phone] PCP - General Internal Medicine 08/15/22
--- OUTSIDE RECORDS SUMMARY | 2025-05-06 14:25 | XMS_ITS | Clinical Summary ---
Author Organization [facility] Address [address] [place] [id number] Care Team Providers Care Clerk Typist Name Role Phone Karishma Forrester PA-C Primary Care Provider [phone] Allergies Active Allergy Reactions Criticality Noted Date Comments Lisinopril Shortness Of Breath 02/07/2018 Medications amLODIPine (NORVASC) 5 mg tablet Take 5 mg by mouth once daily. Active doxazosin (CARDURA) 8 mg tablet Take 8 mg by mouth at bedtime. Active lansoprazole (PREVACID) 30 mg capsule Take 30 mg by mouth once daily before a meal. Active multivit with minerals/lutein (MULTIVITAMIN 50 PLUS ORAL) Take 1 tablet by mouth once daily. Active chlorthalidone (HYGROTON) 25 mg tablet Take 25 mg by mouth once daily. Active losartan (Cozaar) 100 mg tablet Take 100 mg by mouth once daily. Active rosuvastatin (Crestor) 10 mg tablet Take 10 mg by mouth at bedtime. 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 Gender Identity Not on file Sexual Orientation Not on file Obstetrics History Last Filed Vital Signs Vital Sign Reading Time Taken Comments Blood Pressure 106/65 04/10/2023 10:00 AM CDT Pulse 57 04/10/2023 10:00 AM CDT Temperature 36.3 C (97.4 F) 04/10/2023 9:27 AM CDT Respiratory Rate 18 04/10/2023 10:0 0 AM CDT Oxygen Saturation 96% 04/10/2023 10: 00 AM CDT Inhaled Oxygen Concentration - - Weight 90.6 kg (199 lb 11.2 oz) 04/10/2023 8:24 AM CDT Height 169 cm (5' 6.54) 03/29/2023 1:31 PM CDT Body Mass Index 31.72 03/29/2023 1:31 PM CDT Plan of Treatment Health Maintenance Due Date Last Done Comments Tetanus booster 01/30/1964 Depression screening for age 12+ 1965 BMI (ht and wt on same day) for age 18+ 1971 Hepatitis C screening for ag e 18-79 1971 Lipids for age 45-75 1998 Pneumococcal series for age 50+ (1 of 1 - PCV) 2003 Zoster (shingles) series for age 50+ (1 of 2) 2003 COVID-19 vaccine series ( season) 2025 09/16/2021, 04/07/2021, 03/17/2021 Influenza Vaccine (#1) 2025 RSV vaccine for adults or (1 - 1-dose 75+ series) 01/30/2028 Colonoscopy through age 75 04/10/203304/10, 02/11/2018 Hepatitis B series for 19+ Aged Out N o longer eligible based on patient's age to complete this topic Procedures Procedure Name Priority Date/Time Associated Diagnosis Comments COLONOSCOPY 04/10/2023 8:56 AM CDT from Last 3 Months or Most Recently Relevant to Health Maintenance Results * COLONOSCOPY (04/10/2023 8:56 AM CDT) 04/10/2023 8:56 AM CDT Narrative Transcriptions FromAnil herring MD - 04/10/2023 9:26 AM CDT Patient Name: Francisco Hurtado Procedure Date: 04/10/2023 Gender: Male Date of : 1955 Admit Type: Ambulatory Procedure: Colonoscopy Proceduralist: Elian Dial MD [facility] Referring MD: Elian Dial MD Indications/Pre-Op Diagnosis: Surveillance: Personal history ofadenomatous polyps on last colonoscopy 5 years ago Medications: Monitored Anesthesia Care Procedure Description: The procedure, indications, potential complications, (bleeding, perforation, infection, adverse medication reaction, missed lesionsor polyps) and alternatives available were explained to the patient, who appeared to understand and indicated this. Opportunity for questionswas provided and informed consent obtained. The endoscope [id number] was passed through the anus andadvanced to the cecum, identified by appendiceal orifice and ileocecal valve.The colonoscopy was performed with ease. The patient tolerated theprocedure well. The quality of the bowel preparation was evaluated using theBBPS ([place] Bowel Preparation Scale) with scores of: Right Colon = 3, Transverse Colon = 3 and Left Colon = 3 (entire mucosa seen well withno residual staining, small fragments of stool or opaque liquid). Thetotal BBPS score equals 9. Complications: No immediate complications. Estimated Blood Loss & Specimen: Estimated blood loss was minimal. Specimen collected: Yes and sent to Laboratory Findings: The perianal and digital rectal examinations were normal. Pertinent negatives include normal sphincter tone. Normal appearing ileocecal valve A 4 mm polyp was found in the ascending colon. The polyp was sessile. The polyp was removed with a cold snare. Resection and retrieval were complete. The exam was otherwise without abnormality on direct and retroflexion views. Multiple small and large-mouthed diverticula were found in thesigmoid colon and descending colon. Impressions/Post-Op Diagnosis: - One 4 mm polyp in the ascending colon, removed with a cold snare. Resected and retrieved. - The examination was otherwise normal on direct and retroflexionviews. - Diverticulosis in the sigmoid colon and in the descending colon. Recommendation: - Await pathology results. - Dr. Dial's office will contact you with biopsy/pathology results when available. Moderate Sedation: Deep sedation per anesthesia. Elian Dial MD 04/10/2023 9:26:39 AM This report has been signed electronically. Note Initiated On: 04/10/2023 8:56 AM Anil Dial MD PROCEDURE ORD Final Resu lt from Last 3 Months or Most Recently Relevant to Health Maintenance Insurance MEDICARE PART B HB ONLY BLUE [place]OSS [place] BLUE HB ONLY Advance Directives * Full Code (Latest Code Status on File) Date Activated Date Inactivated Comments 04/10/2023 7:23 AM 04/10/2023 12:44 PM Question Answer Comments Code Status Discussion: Reviewed Preferences * Full Code Date Activated Date Inactivated Comments 02/11/2018 10:41 AM 02/11/2018 6:56 PM Care Teams Clerk Typist Relationship Specialty Start Date End Date Karishma Forrester PA-C [address] [place] [id number] PCP - General Physician Parking Meter Attendant 03/23/23
[2025-05-06] MEDS: ACETAMINOPHEN INJ 1,000 MG/100 ML VIAL 400 MG IVPB (14:42)
[2025-05-06] MEDS: PANTOPRAZOLE SODIUM 40 MG INJ IVP (16:24)
--- NOTE | 2025-05-06 18:57 | PM.IMHP1 ---
Assessment and Plan Assessment and plan (1) Pancreatitis: Problem comment: -1st episode. Lipase 7171, recheck in a.m. -NPO, IVF -pain and nausea management as needed -ultrasound ordered for morning -consider General Surgery consult if new or worsening symptoms, no improvement, or acute findings following ultrasound Status: Acute (2) Duodenitis: Problem comment: -management as above -says he takes a baby ASA daily but I don't see this on his list. Otherwise denies regular NSAID use -IV PPI -H pylori ordered -ultrasound ordered for morning Status: Acute (3) Hypertension: Problem comment: -continue home medications, daughter is getting pill bottles to confirm Status: Acute (4) Gastroesophageal reflux: Problem comment: -hold home PPI, continue with IV PPI Status: Acute (5) Hyperlipidemia: Problem comment: -continue statin Status: Acute (6) Chewing tobacco use: Problem comment: -chronic Status: Acute Total Time Spent Total Time Spent: Today I spent 75 minutes seeing the patient, reviewing Expanse and EPIC notes/diagnostics, discussing the care plan with our care time that includes social work, PT/OT, pharmacy, RT, shelter and documenting my impressions and plan in the medical record. Hospitalist- H&P: HPI History of Present Illness Date Seen: 05/06/25 Chief complaint: Abdominal pain Narrative: Francisco Hurtado is a 70 year old male past medical history significant for hypertension, GERD, carotid atherosclerosis, hyperlipidemia is admitted to the medical floor from the ED for further management acute pancreatitis. Patient is seen with daughter at bedside. Patient reports onset of abdominal pain early this morning, waking him from sleep. Centralized, bloated. Did eat breakfast but not has not eaten since. Feeling hungry now. Denies any nausea or vomiting. No change in stools. Last BM was this morning. No recent fevers. No UTI symptoms. No previous episodes. No abdominal surgeries. No recent medication changes nor no new medications. No alcohol use. Chews tobacco. PCP is Karishma Forrester PA-C in [place]. Full code Review of Systems Narrative: REVIEW OF SYSTEMS: Complete review of systems performed and negative unless otherwise stated in HPI or below. Medical Decision Making Medical Decision Making Code Status: Full code Has patient completed a Health Care Directive: No During This Stay, Who Would You Like To Make Decisions For You In The Event You Are Unable To Make Them For Yourself?: [facility] Medical History (Updated 05/06/25 @ 19:16 by Priya Vora PA-C) Hyperlipidemia ?E78.5 - Hyperlipidemia, unspecified (ICD-10) Surgical History History of arthroscopy of right shoulder (07/17/01) ?Z98.890 - Other specified postprocedural states (ICD-10) History of arthroscopy of left shoulder (08/14/07) ?Z98.890 - Other specified postprocedural states (ICD-10) History of carpal tunnel surgery of right wrist (06/19/12) ?Z98.890 - Other specified postprocedural states (ICD-10) History of carpal tunnel surgery of left wrist (07/15/15) ?Z98.890 - Other specified postprocedural states (ICD-10) 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) ?Z96.652 - Presence of left artificial knee joint (ICD-10) Status post right knee replacement (03/22/21) ?Z96.651 - Presence of right artificial knee joint (ICD-10) Social History Narrative: Hx tobacco use What is your current living situation?: I presently have a place to live Problems where you live: no known problems In the past 12 months, utilities in danger of being shut off: no In past 12 months, lack of transportation kept you from medical appts, meetings, work, or getting things needed for daily living: no In the past 12 mos, have been you worried that your food would run out before you had money to buy more?: never true In the past 12 mos, the food you bought just didn't last and you didn't have money to buy more?: never true Smoking Status: Former smoker How often do you have a drink containing alcohol: never How often do you have six or more drinks on one occasion: Never AUDIT-C Alcohol total score: 0 Non-prescribed substance use: denies use How often does anyone, including family, friends and others, physically hurt you: never How often does anyone, including family, friends and others, insult or talk down to you: never How often does anyone, including family, friends and others, threaten you with harm: never How often does anyone, including family, friends and others, scream or curse at you: never Meds Home Medications and Allergies Home Medications ?Medication ?Instructions ?Recorded ?Confirmed ?Type amlodipine 5 mg tablet 5 mg PO DAILY 04/25/22 05/06/25 History doxazosin 8 mg tablet 8 mg PO HS 04/25/22 05/06/25 History lansoprazole 30 mg capsule,delayed 30 mg PO DAILY 04/25/22 05/06/25 History release multivitamin (Multiple Vitamins 1 tab PO QAM 04/25/22 05/06/25 History tablet) chlorthalidone 25 mg tablet 12.5 mg PO QAM 05/06/25 05/06/25 History losartan 100 mg tablet 100 mg PO DAILY 05/06/25 History rosuvastatin 10 mg tablet 10 mg PO HS 05/06/25 05/06/25 History Allergies Allergy/AdvReac Type Severity Reaction Status Date / Time lisinopril Allergy Unknown Unknown Verified 05/06/25 12:34 Exam Narrative: Exam Narrative: PHYSICAL EXAM General: Pleasant, conversant, joking with staff, NAD HEENT: Normocephalic, atraumatic, sclera white, EOMI, oral mucosa moist Cardiovascular: RRR, S1S2. No pitting edema Pulmonary: CTA bilaterally without rhonchi, rales, expiratory wheezes. No dyspnea Abdominal: Soft, mildly distended, pain on palpation across upper abdomen, no guarding Neurological: Alert, answering questions appropriately, cranial nerves intact, no focal findings Extremities: No gross joint deformity or swelling. AROMI. Neurovascularly intact Skin: Warm, dry. Const: Vital Signs, click to edit/add: Vital Signs - 24 hr 05/06/25 12:30 05/06/25 13:40 05/06/25 14:11 Temperature 97.9 F Pulse Rate 57 L Pulse Rate [Pulse Oximeter] 55 L Respiratory Rate 18 Blood Pressure Blood Pressure [Le ft Arm] Blood Pressure [Ri ght Upper Arm] 157/79 H Pulse Oximetry 97 98 97 Oxygen Delivery Me thod Room Air 05/06/25 14:13 05/06/25 14:15 05/06/25 14:32 Temperature Pulse Rate 57 L 55 L 60 Pulse Rate [Pulse Oximeter] Respiratory Rate Blood Pressure 183/74 H Blood Pressure [Le ft Arm] Blood Pressure [Ri ght Upper Arm] Pulse Oximetry 97 98 97 Oxygen Delivery Me thod 05/06/25 14:33 05/06/25 14:34 05/06/25 14:35 Temperature 97.9 F Pulse Rate 59 L 60 Pulse Rate [Pulse Oximeter] Respiratory Rate Blood Pressure 177/78 H Blood Pressure [Le ft Arm] Blood Pressure [Ri ght Upper Arm] Pulse Oximetry 94 95 Oxygen Delivery Me thod 05/06/25 14:45 05/06/25 15:02 05/06/25 15:08 Temperature Pulse Rate 59 L 62 74 Pulse Rate [Pulse Oximeter] Respiratory Rate Blood Pressure 166/78 H Blood Pressure [Le ft Arm] Blood Pressure [Ri ght Upper Arm] Pulse Oximetry 95 95 94 Oxygen Delivery Me thod 05/06/25 15:30 05/06/25 16:00 05/06/25 16:02 Temperature Pulse Rate 56 L 55 L 63 Pulse Rate [Pulse Oximeter] Respiratory Rate 16 Blood Pressure 168/83 H Blood Pressure [Le ft Arm] Blood Pressure [Ri ght Upper Arm] Pulse Oximetry 91 97 [facility] 05/06/25 16:15 05/06/25 16:30 05/06/25 16:45 Temperature Pulse Rate 57 L 57 L 61 Pulse Rate [Pulse Oximeter] Respiratory Rate Blood Pressure Blood Pressure [Le ft Arm] Blood Pressure [Ri ght Upper Arm] Pulse Oximetry 97 96 96 [facility] 05/06/25 17:19 05/06/25 17:19 Temperature 97.7 F Pulse Rate Pulse Rate [Pulse Oximeter] 77 Respiratory Rate 17 17 Blood Pressure Blood Pressure [Le ft Arm] 180/70 H Blood Pressure [Ri ght Upper Arm] Pulse Oximetry 97 97 Oxygen Delivery Me thod Room Air Room Air Hospitalist - H&P: Result Labs Labs: Short CBC 05/06/25 Range/Units 13:40 WBC 12.29 H (4.50-11.00) K/uL Hgb 14.6 (13.5-17.5) gm/dL Hct 41.7 (37.0-53.0) % Plt Count 265 (140-440) K/uL BMP 05/06/25 13:40 Sodium 136 Potassium 4.0 Chloride 101 Carbon Dioxide 25 BUN 20 Creatinine 1.2 Glucose 120 H Calcium 9.6 Cardiac Enzymes 05/06/25 Range/Units 13:40 Troponin I < 0.01 (0.01-0.04) ng/mL Liver Function 05/06/25 Range/Units 13:40 Total Bilirubin 0.4 (0.1-1.5) mg/dL AST 43 H (12-35) U/L ALT 37 (4-50) U/L Alkaline Phosphatase 75 (40-150) U/L Albumin 4.5 (3.3-5.0) g/dL ECG Attestation: I personally reviewed and interpreted this ECG as follows: ECG interpretation date: 05/06/25 Interpretation: Sinus Silas, first-degree AV block, ventricular rate 55, QTC [address] scan - abdomen: Attestation: I have reviewed the pertinent imaging results. Radiologist's impression: Mild subpleural ground-glass, likely atelectasis or scarring. Liver is unremarkable. Gallbladder is partially distended. No biliary ductal dilatation. Spleen is unremarkable. There is mild stranding along the head uncinate and proximal body of the pancreas as evidence for pancreatitis. Inflammation extends to the pancreatico duodenal groove. No peripancreatic fluid collection. No main ductal dilatation. The adrenal glands are unremarkable. The kidneys are unremarkable. Urinary bladder is partially distended. Mass effect on the posterior bladder wall from an enlarged prostate. Colonic diverticulosis is seen without CT evidence of acute diverticulitis. The appendix is nondilated. The terminal ileum is nondilated. The remainder of the small bowel is unremarkable. A small hiatal hernia is present. There is focal thickening and stranding of the 3rd and 4th portion of the duodenum. This is evidence for duodenitis. This is likely secondary to pancreatitis although indeterminate. A small amount of fluid is seen tracking along the undersurface of the duodenum and along the right peritoneal reflection (series 2, image 71). No organized drainable fluid collection. No gross free air is seen. No lymphadenopathy is seen. Prostatomegaly is again noted. Small fat containing left inguinal hernia. Extensive atherosclerosis is seen within a nondilated aorta. Bone windows demonstrate no suspicious lytic or sclerotic lesion. No fracture IMPRESSION: 1. Focal thickening and stranding of the head/uncinate of the pancreas as well as the mid and distal duodenum as evidence for pancreatitis and duodenitis. It is uncertain which is primary. A small amount of fluid is seen along the undersurface of the duodenum tracking along the right peritoneal reflection. No organized drainable abscess. No gross free air.
[2025-05-06] MEDS: ENOXAPARIN 40 MG/0.4 ML INJ SUBCUT (20:18)
[2025-05-06] MEDS: ROSUVASTATIN CALCIUM 10 MG TABLET PO (20:18)
[2025-05-06] MEDS: DOXAZOSIN 4 MG TABLET 8 MG PO (20:19)
[2025-05-06] MEDS: SODIUM CHLORIDE 0.9 % (FLUSH) 10 ML SYRINGE 5 ML IVF (20:19)
--- NOTE | 2025-05-06 23:02 | PC.NURSE ---
Pt is alert and oriented. C/o abdominal pain, rates between 5-9. Pain tolerated with IV hydromorphone.?NPO. IV NS at 125ml/hr. VSS. pt in independent.
[2025-05-07] VITALS (9 sets, daily range): BP systolic 134–161; BP diastolic 63–74; PULSE 74–84; RESP 16–18; TEMP 36.6–37.1; O2SAT 92–95
[2025-05-07] MEDS: ACETAMINOPHEN 325 MG TABLET PO (05:17)
--- NOTE | 2025-05-07 06:20 | PC.NURSE ---
Shift note ([id number]): Patient pleasant, alert and oriented.?Ambulated to bathroom with stand by assist of one to help with IV pole. Given PRN Dilaudid and Tylenol for abdominal pain rated 4-7/10. Pt was allowed ice chips until 0200. Had a sip of water at 0515 with PRN Tylenol, has otherwise been NPO since that time. NS at 125mL/hr.?
[2025-05-07 06:49] LABS: Hematocrit* 38.0 % (37.0-53.0); Hemoglobin* 13.3 gm/dL (13.5-17.5); Mean Corpuscular HGB Conc 35 gm/dL (32-36); Mean Corpuscular Hemoglobin 34 pg (26-34); Mean Corpuscular Volume 96 fL (80-100); Red Blood Count* 3.94 m/uL (4.30-5.90); White Blood Count* 13.95 K/uL (4.50-11.00)
[2025-05-07 06:50] LABS: Slide Review Reflex No
[2025-05-07 06:55] LABS: Albumin* 3.8 g/dL (3.3-5.0); Chloride* 104 mmol/L (96-114)
[2025-05-07 06:56] LABS: Potassium* 3.8 mmol/L (3.6-5.1); Sodium* 135 mmol/L (135-149)
[2025-05-07 06:58] LABS: Alanine Aminotransferase* 26 U/L (4-50); Alkaline Phosphatase* 64 U/L (40-150); Anion Gap 6 mEq/L (7-15); Aspartate Amino Transferase* 29 U/L (12-35); Bilirubin Direct* 0.1 mg/dL (0.0-0.5); Bilirubin Total* 0.7 mg/dL (0.1-1.5); Blood Urea Nitrogen* 16 mg/dL (7-30); Carbon Dioxide* 25 mmol/L (20-32); Creatinine* 1.2 mg/dL (0.5-1.5); Est. Creatinine Clearance* 50.21; Estimated Glomerular Filt Rate 64 ml/min; Total Protein* 6.3 g/dL (6.0-8.3)
[2025-05-07 06:59] LABS: Calcium* 8.5 mg/dL (8.4-10.6); Glucose* 111 mg/dL (60-115)
--- NOTE | 2025-05-07 07:00 | CRLHL7_ITS ---
For Patients: As a result of the Century Cures Act, medical imaging exams and procedure reports are released immediately into your electronic medical record. You may view this report before your referring provider. If you have questions, please contact your health care provider. Indication: Pancreatitis and duodenitis on a May 06, 2025 CT of the abdomen and pelvis. Assess for gallbladder disease Technique: Sonography of the abdomen was performed limited to the structures discussed below Comparison: Limited portions of the above-mentioned CT Findings: As described below Impression: 1. Normal appearing gallbladder. Wall thickness is normal at 2 millimeters. No intramural edema. No sludge, calculus, pericholecystic fluid or reported sonographic Bettencourt`s sign. 2. Normal caliber common bile duct at 4 millimeters. Dictated by Unruly Grady MD @ 05/07/2025 7:08:35 AM (Electronically Signed)
[2025-05-07] MEDS: AMLODIPINE 5 MG TABLET PO (08:50)
[2025-05-07] MEDS: SODIUM CHLORIDE 0.9 % (FLUSH) 10 ML SYRINGE 5 ML IVF ×3 (08:52→20:52)
[2025-05-07] MEDS: PANTOPRAZOLE SODIUM 40 MG INJ IVP (08:52)
--- NOTE | 2025-05-07 11:32 | CRLHL7_ITS ---
For Patients: As a result of the Century Cures Act, medical imaging exams and procedure reports are released immediately into your electronic medical record. You may view this report before your referring provider. If you have questions, please contact your health care provider. INDICATION: Right upper quadrant pain TECHNIQUE: 1.5 T MRI of the abdomen was performed with T2 weighted imaging; in and out of phase imaging; 3D MRCP imaging was obtained. No intravenous contrast was administered COMPARISON: CT abdomen and pelvis 05/06/2025, abdominal ultrasound 05/07/2025 FINDINGS: Lungs: Left basal atelectasis. No pleural or pericardial effusion. Small hiatal hernia. Liver: Hepatic steatosis. Biliary tree and gallbladder: No intra or extrahepatic biliary dilation. The common bile duct measures up to 3 mm. Fluid-filled gallbladder without stones. Spleen: Unremarkable Pancreas: Similar mild stranding about the pancreatic head/uncinate process. No pancreatic duct dilation. No definite evidence of pancreatic necrosis or mass within the limitation of noncontrast exam. No peripancreatic fluid collection. Adrenal glands: Unremarkable. Kidneys and ureters: No definite renal masses or hydronephrosis. GI tract: No evidence of obstruction or inflammation. Vasculature: The IVC and aorta are normal in caliber. Lymph nodes: No lymphadenopathy. Abdominal wall: Unremarkable Bones: Degenerative change of the imaged spine. IMPRESSION: 1. Similar mild stranding about the pancreatic head/uncinate process suggestive of acute interstitial edematous pancreatitis. Please correlate with lipase. No definite evidence of pancreatic necrosis or mass within the limitation of noncontrast exam. Recommend repeat imaging following resolution of acute episode to exclude possibility of underlying mass. 2. Hepatic steatosis. 3. No biliary dilation. Unremarkable gallbladder. Dictated by Gabbie Paige MD @ 05/07/2025 12:58:25 PM (Electronically Signed)
--- NOTE | 2025-05-07 11:37 | PM.IMPN1 ---
Assessment and Plan Assessment and plan (1) Pancreatitis: Problem comment: -1st episode. Lipase 7171, recheck in a.m. -NPO, IVF -pain and nausea management as needed -ultrasound ordered for morning -consider General Surgery consult if new or worsening symptoms, no improvement, or acute findings following ultrasound -despite paucity of findings and CT scan of abdomen and pelvis and abdominal ultrasound, symptoms are persistent, therefore will proceed with MRCP today Status: Acute (2) Duodenitis: Problem comment: -management as above -says he takes a baby ASA daily but I don't see this on his list. Otherwise denies regular NSAID use -IV PPI -H pylori ordered -ultrasound ordered for morning Status: Acute (3) Hypertension: Problem comment: -continue home medications, daughter is getting pill bottles to confirm Status: Acute (4) Gastroesophageal reflux: Problem comment: -hold home PPI, continue with IV PPI Status: Acute (5) Hyperlipidemia: Problem comment: -continue statin Status: Acute (6) Chewing tobacco use: Problem comment: -chronic Status: Acute Plan 1. Reviewed impression, plans, recommendations with patient and daughter 2. Answered their questions 3. They are agreeable with above stated plans and recommendations Total Time Spent Total Time Spent: 45 minutes Subjective Date Seen: 05/07/25 Interval history: Admission history of present illness: ?70 year old male past medical history significant for hypertension, GERD, carotid atherosclerosis, hyperlipidemia is admitted to the medical floor from the ED for further management acute pancreatitis. ?Patient is seen with daughter at bedside. Patient reports onset of abdominal pain early this morning, waking him from sleep. Centralized, bloated. Did eat breakfast but not has not eaten since. Feeling hungry now. Denies any nausea or vomiting. No change in stools. Last BM was this morning. No recent fevers. No UTI symptoms. No previous episodes. No abdominal surgeries. No recent medication changes nor no new medications. ?No alcohol use. Chews tobacco. PCP is Karishma Forrester PA-C in [place]. Full code? 05/07/2025, hospital day 2. Awakened around 3 in the morning on 05/06/2025 with abdominal pain off and on since. Despite not eating or drinking he has persistent abdominal discomfort. Attempted sips of clear liquids this morning which made his abdominal pain worse. Does obtain relief with analgesics. No need for antiemetics. No recent trauma, injury, infection. No recent travel. No recent fever, rigors, diaphoresis. Passing flatus and stool. Passing urine without difficulties. No recent weight gain or weight loss. Although he has no new medications, he does take chlorthalidone for his blood pressure management. Chlorthalidone has historically been implicated as a cause for pancreatitis in rare situations. This is presently on hold. Exam Narrative: Exam Narrative: I assess patient in his hospital room without his daughter present and with his daughter present at different times. Friendly, articulate, cooperative. Does not appear to be in distress. Vision and hearing are adequate. Lungs are clear to auscultation. Heart tones with regular rhythm. Abdomen with active bowel sounds, soft, subjective discomfort to palpation in the epigastrium. No rebound or guarding. Independent with transfer, station, and gait. Const: Vital Signs, click to edit/add: Vital Signs - 24 hr 05/06/25 12:30 05/06/25 13:40 05/06/25 14:11 Temperature 97.9 F Pulse Rate 57 L Pulse Rate [Pulse Oximeter] 55 L Respiratory Rate 18 Blood Pressure Blood Pressure [Le ft Arm] Blood Pressure [Ri ght Upper Arm] 157/79 H Pulse Oximetry 97 98 97 Oxygen Delivery Me thod Room Air 05/06/25 14:13 05/06/25 14:15 05/06/25 14:32 Temperature Pulse Rate 57 L 55 L 60 Pulse Rate [Pulse Oximeter] Respiratory Rate Blood Pressure 183/74 H Blood Pressure [Le ft Arm] Blood Pressure [Ri ght Upper Arm] Pulse Oximetry 97 98 97 Oxygen Delivery Me thod 05/06/25 14:33 05/06/25 14:34 05/06/25 14:35 Temperature 97.9 F Pulse Rate 59 L 60 Pulse Rate [Pulse Oximeter] Respiratory Rate Blood Pressure 177/78 H Blood Pressure [Le ft Arm] Blood Pressure [Ri ght Upper Arm] Pulse Oximetry 94 95 Oxygen Delivery Me thod 05/06/25 14:45 05/06/25 15:02 05/06/25 15:08 Temperature Pulse Rate 59 L 62 74 Pulse Rate [Pulse Oximeter] Respiratory Rate Blood Pressure 166/78 H Blood Pressure [Le ft Arm] Blood Pressure [Ri ght Upper Arm] Pulse Oximetry 95 95 94 Oxygen Delivery Me thod 05/06/25 15:30 05/06/25 16:00 05/06/25 16:02 Temperature Pulse Rate 56 L 55 L 63 Pulse Rate [Pulse Oximeter] Respiratory Rate 16 Blood Pressure 168/83 H Blood Pressure [Le ft Arm] Blood Pressure [Ri ght Upper Arm] Pulse Oximetry 91 97 96 Oxygen Delivery Me thod 05/06/25 16:15 05/06/25 16:30 05/06/25 16:45 Temperature Pulse Rate 57 L 57 L 61 Pulse Rate [Pulse Oximeter] Respiratory Rate Blood Pressure Blood Pressure [Le ft Arm] Blood Pressure [Ri ght Upper Arm] Pulse Oximetry 97 96 96 Oxygen Delivery Me thod 05/06/25 17:19 05/06/25 17:19 05/06/25 19:32 Temperature 97.7 F 97.9 F Pulse Rate Pulse Rate [Pulse Oximeter] 77 51 L Respiratory Rate 17 17 17 Blood Pressure Blood Pressure [Le ft Arm] 180/70 H 156/61 H Blood Pressure [Ri ght Upper Arm] Pulse Oximetry 97 97 96 Oxygen Delivery Me thod Room Air Room Air Room Air 05/07/25 00:37 05/07/25 04:55 05/07/25 07:46 Temperature 98.5 F 98.6 F 98 F Pulse Rate Pulse Rate [Pulse Oximeter] 74 77 75 Respiratory Rate 18 18 18 Blood Pressure Blood Pressure [Le ft Arm] 147/73 H 145/72 H 134/63 Blood Pressure [Ri ght Upper Arm] Pulse Oximetry 94 95 95 Oxygen Delivery Me od Room Air Room Air Room Air 05/07/25 10:25 Temperature 98.3 F Pulse Rate Pulse Rate [Pulse Oximeter] 74 Respiratory Rate 18 Blood Pressure Blood Pressure [Le ft Arm] 149/66 H Blood Pressure [Ri ght Upper Arm] Pulse Oximetry 94 Oxygen Delivery Sc thod Room Air Labs Labs: Laboratory Results - last 24 hr 05/06/25 05/06/25 05/06/25 13:31 13:40 14:05 WBC 12.29 H RBC 4.36 Hgb 14.6 Hct 41.7 MCV 96 MCH 34 MCHC 35 RDW Coeff of Lisa 13.0 Plt Count 265 Neut % (Auto) 83.6 H Lymph % (Auto) 9.0 L [place] % (Auto) 6.7 Eos % (Auto) 0.4 Baso % (Auto) 0.2 Neut # (Auto) 10.30 H Lymph # (Auto) 1.10 [place] # (Auto) 0.80 Eos # (Auto) 0.00 Baso # (Auto) 0.00 Abs Immat Gran (auto) 0.00 Imm/Tot Granulo (auto) 0.1 Sodium 136 Potassium 4.0 Chloride 101 Carbon Dioxide 25 Anion Gap 10 BUN 20 Creatinine 1.2 Estimated Creat Clear Estimated GFR 64 Glucose 120 H Lactate 1.1 Calcium 9.6 Total Bilirubin 0.4 Direct Bilirubin AST 43 H ALT 37 Alkaline Phosphatase 75 Troponin I < 0.01 C-Reactive Protein < 0.5 L Total Protein 7.9 Albumin 4.5 Lipase 7171 H Lab Acknowledgement Test Added POC Creatinine 1.4 H 05/07/25 06:00 WBC 13.95 H RBC 3.94 L Hgb 13.3 L Hct 38.0 MCV 96 MCH 34 MCHC 35 RDW Coeff of Lisa Plt Count 237 Neut % (Auto) Lymph % (Auto) [place] % (Auto) Eos % (Auto) Baso % (Auto) Neut # (Auto) Lymph # (Auto) [place] # (Auto) Eos # (Auto) Baso # (Auto) Abs Immat Gran (auto) Imm/Tot Granulo (auto) Sodium 135 Potassium 3.8 Chloride 104 Carbon Dioxide 25 Anion Gap 6 L BUN 16 Creatinine 1.2 Estimated Creat Clear 50.21 Estimated GFR 64 Glucose 111 Lactate Calcium 8.5 Total Bilirubin 0.7 Direct Bilirubin 0.1 AST 29 ALT 26 Alkaline Phosphatase 64 Troponin I C-Reactive Protein 4.7 H Total Protein 6.3 Albumin 3.8 Lipase 1956 H Lab Acknowledgement POC Creatinine Imaging CT scan - abdomen: Attestation: I have reviewed the pertinent imaging results. Radiologist's impression: IMPRESSION: 1. Focal thickening and stranding of the head/uncinate of the pancreas as well as the mid and distal duodenum as evidence for pancreatitis and duodenitis. It is uncertain which is primary. A small amount of fluid is seen along the undersurface of the duodenum tracking along the right peritoneal reflection. No organized drainable abscess. No gross free air. US - abdomen: Radiologist's impression: Impression: 1. Normal appearing gallbladder. Wall thickness is normal at 2 millimeters. No intramural edema. No sludge, calculus, pericholecystic fluid or reported sonographic Bettencourt`s sign. 2. Normal caliber common bile duct at 4 millimeters.
--- NOTE | 2025-05-07 14:23 | PC.NURSE ---
End of shift [id number]: Pt AxOx3, cooperative, and pleasant with cares. Indep in room. Continent of the bladder. BS active. Tenderness to the abdomen that is tolerable per Pt reporting. Tolerating clear liquid diet well. NS running @ 100 ml/hr. Call light within reach. ?
[2025-05-07] MEDS: ENOXAPARIN 40 MG/0.4 ML INJ SUBCUT (20:49)
[2025-05-07] MEDS: ROSUVASTATIN CALCIUM 10 MG TABLET PO (20:50)
[2025-05-07] MEDS: DOXAZOSIN 4 MG TABLET 8 MG PO (20:50)
--- NOTE | 2025-05-07 23:03 | PC.NURSE ---
end of shift: Pt. AOx4. VSS. Pt. reports pain, med given;see EMAR. Pt. up AMB IND. Pt. AMB in the hallway and showered. Pt. refused SCDs. Education provided about disease process. Sips of water. Denies N/V.
[2025-05-08] MEDS: SODIUM CHLORIDE 0.9 % (FLUSH) 10 ML SYRINGE 5 ML IVF ×5 (03:23→21:36)
[2025-05-08 03:27] VITALS: BP 143/66; PULSE 91; RESP 20; TEMP 36.8; O2SAT 92
--- NOTE | 2025-05-08 05:23 | PC.NURSE ---
End of shift (9823-1130): Pt pleasant, alert and oriented. VSS. Moves independently. Pt stated pain; see mar. On clears, had some sips of water. Pt in bed, appears to be resting, call light within reach.?
[2025-05-08 06:39] LABS: Hematocrit* 38.6 % (37.0-53.0); Hemoglobin* 13.1 gm/dL (13.5-17.5); Mean Corpuscular HGB Conc 34 gm/dL (32-36); Mean Corpuscular Hemoglobin 33 pg (26-34); Mean Corpuscular Volume 96 fL (80-100); Red Blood Count* 4.01 m/uL (4.30-5.90); White Blood Count* 15.82 K/uL (4.50-11.00)
[2025-05-08 06:47] LABS: Slide Review Reflex No
[2025-05-08 06:57] LABS: Albumin* 3.8 g/dL (3.3-5.0); Chloride* 101 mmol/L (96-114)
[2025-05-08 06:58] LABS: Potassium* 3.6 mmol/L (3.6-5.1); Sodium* 133 mmol/L (135-149)
[2025-05-08 07:00] VITALS: BP 141/69; PULSE 74; RESP 18; TEMP 36.3; O2SAT 94
[2025-05-08 07:00] LABS: Blood Urea Nitrogen* 13 mg/dL (7-30); Creatinine* 1.2 mg/dL (0.5-1.5); Est. Creatinine Clearance* 50.21; Estimated Glomerular Filt Rate 64 ml/min
[2025-05-08 07:01] LABS: Alanine Aminotransferase* 21 U/L (4-50); Alkaline Phosphatase* 70 U/L (40-150); Anion Gap 9 mEq/L (7-15); Aspartate Amino Transferase* 34 U/L (12-35); Bilirubin Direct* 0.2 mg/dL (0.0-0.5); Bilirubin Total* 0.7 mg/dL (0.1-1.5); Calcium* 8.4 mg/dL (8.4-10.6); Carbon Dioxide* 23 mmol/L (20-32); Glucose* 98 mg/dL (60-115); Total Protein* 6.4 g/dL (6.0-8.3)
[2025-05-08] MEDS: LOSARTAN POTASSIUM 50 MG TABLET 100 MG PO (08:29)
[2025-05-08] MEDS: AMLODIPINE 5 MG TABLET PO (08:29)
[2025-05-08] MEDS: PANTOPRAZOLE SODIUM 40 MG INJ IVP (08:30)
[2025-05-08] MEDS: ONDANSETRON 2 MG/ML inj 4 MG IVP ×2 (08:30→12:55)
[2025-05-08 11:00] VITALS: BP 135/62; PULSE 72; RESP 18; TEMP 36.8; O2SAT 93
--- NOTE | 2025-05-08 14:56 | PC.NURSE ---
End of shift Note (251)? ? Patient has been pleasant and cooperative throughout shift. He was admitted for severe abdominal pain. Diet was advanced to regular. Tolerating change of diet well. ?Ambulates independently. VSS. Afebrile. AOx4. Call light within reach.? ?
[2025-05-08 16:00] VITALS: BP 132/62; PULSE 75; RESP 18; TEMP 36.9; O2SAT 95
--- NOTE | 2025-05-08 16:23 | PM.IMPN1 ---
Assessment and Plan Assessment and plan (1) Pancreatitis: Problem comment: -1st episode. Lipase 7171, recheck in a.m. -NPO, IVF -pain and nausea management as needed -ultrasound ordered for morning -consider General Surgery consult if new or worsening symptoms, no improvement, or acute findings following ultrasound -despite paucity of findings and CT scan of abdomen and pelvis and abdominal ultrasound, symptoms are persistent, therefore will proceed with MRCP 05/07/2025 -MRCP 05/07/2025 demonstrates mild pancreatitis and duodenitis apparently without stones. -attempt to increase diet to see if he tolerates Status: Acute (2) Duodenitis: Problem comment: -management as above -says he takes a baby ASA daily but I don't see this on his list. Otherwise denies regular NSAID use -IV PPI initially, changed to oral PPI on 05/08/2025 -H pylori ordered, but still awaiting stool sample -consider treatment for Helicobacter pylori duodenitis if Helicobacter pylori antigen is positive Status: Acute (3) Hypertension: Problem comment: -continue home medications, daughter is getting pill bottles to confirm -we are holding the chlorthalidone given it is reported association with possible acute pancreatitis Status: Acute (4) Gastroesophageal reflux: Problem comment: -hold home PPI, continue with IV PPI -change to oral PPI on 05/08/2025 Status: Acute (5) Hyperlipidemia: Problem comment: -continue statin Status: Acute (6) Chewing tobacco use: Problem comment: -chronic Status: Acute Plan 1. Reviewed impression, plan, recommendations with patient and daughter 2. Answered their questions to their satisfaction 3. They are agreeable with above stated plans and recommendations Subjective Date Seen: 05/08/25 Interval history: Admission history of present illness: ?70 year old male past medical history significant for hypertension, GERD, carotid atherosclerosis, hyperlipidemia is admitted to the medical floor from the ED for further management acute pancreatitis. ?Patient is seen with daughter at bedside. Patient reports onset of abdominal pain early this morning, waking him from sleep. Centralized, bloated. Did eat breakfast but not has not eaten since. Feeling hungry now. Denies any nausea or vomiting. No change in stools. Last BM was this morning. No recent fevers. No UTI symptoms. No previous episodes. No abdominal surgeries. No recent medication changes nor no new medications. ?No alcohol use. Chews tobacco. PCP is Karishma Forrester PA-C in [place]. Full code? 05/07/2025, hospital day 2. Awakened around 3 in the morning on 05/06/2025 with abdominal pain off and on since. Despite not eating or drinking he has persistent abdominal discomfort. Attempted sips of clear liquids this morning which made his abdominal pain worse. Does obtain relief with analgesics. No need for antiemetics. No recent trauma, injury, infection. No recent travel. No recent fever, rigors, diaphoresis. Passing flatus and stool. Passing urine without difficulties. No recent weight gain or weight loss. Although he has no new medications, he does take chlorthalidone for his blood pressure management. Chlorthalidone has historically been implicated as a cause for pancreatitis in rare situations. This is presently on hold. 05/08/2025, hospital day 3. Patient indicates discomfort in abdomen is persistent but much less than yesterday. No longer having the tenderness in his abdomen as he had yesterday. Tolerating soft diet without nausea, vomiting, or worsening of abdominal pain. Tolerating increased activities. Passing flatus. Still has not had a bowel movement. Exam Narrative: Exam Narrative: Examined patient in his hospital room. Vision and hearing are adequate. Alert and oriented x4. Friendly, articulate, cooperative. He likes to kid around with those near him. Appears comfortable and in no acute distress. Lungs clear to auscultation. Heart tones with regular rhythm. Abdomen is mildly distended but with active bowel sounds, soft, nontender. Independent with transfer, station, and gait. Const: Vital Signs, click to edit/add: Vital Signs - 24 hr 05/07/25 16:47 05/07/25 16:47 05/07/25 17:22 Temperature 98.5 F Pulse Rate [Pulse Oximeter] 80 80 Respiratory Rate 18 18 18 Blood Pressure [Le ft Arm] 161/65 H Pulse Oximetry 94 94 Oxygen Delivery Me thod Room Air Room Air 05/07/25 19:00 05/07/25 23:00 05/07/25 23:40 Temperature 98.8 F 98.4 F Pulse Rate [Pulse Oximeter] 82 84 84 Respiratory Rate 16 18 18 Blood Pressure [Le ft Arm] 155/74 H 153/67 H Pulse Oximetry 93 92 Oxygen Delivery Me thod Room Air Room Air 05/08/25 03:27 05/08/25 07:00 05/08/25 07:00 Temperature 98.2 F 97.3 F L Pulse Rate [Pulse Oximeter] 91 74 74 Respiratory Rate 20 18 Blood Pressure [Le ft Arm] 143/66 H 141/69 H Pulse Oximetry 92 94 Oxygen Delivery Me thod Room Air Room Air 05/08/25 11:00 Temperature 98.2 F Pulse Rate [Pulse Oximeter] 72 Respiratory Rate 18 Blood Pressure [Le ft Arm] 135/62 Pulse Oximetry 93 Oxygen Delivery Me thod Room Air Labs Labs: Laboratory Results - last 24 hr 05/08/25 05:48 WBC 15.82 H RBC 4.01 L Hgb 13.1 L Hct 38.6 MCV 96 MCH 33 MCHC 34 Plt Count 216 Sodium 133 L Potassium 3.6 Chloride 101 Carbon Dioxide 23 Anion Gap 9 BUN 13 Creatinine 1.2 Estimated Creat Clear 50.21 Estimated GFR 64 Glucose 98 Calcium 8.4 Total Bilirubin 0.7 Direct Bilirubin 0.2 AST 34 ALT 21 Alkaline Phosphatase 70 C-Reactive Protein 18.6 H Total Protein 6.4 Albumin 3.8 Lipase 418 H
[2025-05-08 19:00] VITALS: BP 102/52; PULSE 75; RESP 18; TEMP 37.1; O2SAT 93
[2025-05-08] MEDS: ENOXAPARIN 40 MG/0.4 ML INJ SUBCUT (21:35)
[2025-05-08] MEDS: SENNOSIDES/DOCUSATE TABLET 2 TAB PO (21:36)
[2025-05-08] MEDS: ROSUVASTATIN CALCIUM 10 MG TABLET PO (21:36)
[2025-05-08] MEDS: DOXAZOSIN 4 MG TABLET 8 MG PO (21:36)
--- NOTE | 2025-05-08 23:18 | PC.NURSE ---
Pt is pleasant, vss on RA. Pain is constant, although kept under control with PRN oxy. Miralax and senna were given per order to assist with stool sample production. Ate about 50% of dinner. No nausea, ambulated in the halls. Leanna ORO BSN
[2025-05-08 23:50] VITALS: BP 102/57; PULSE 74; RESP 20; TEMP 36.8; O2SAT 93
[2025-05-09 04:13] VITALS: BP 133/67; PULSE 72; RESP 18; TEMP 37; O2SAT 93
--- NOTE | 2025-05-09 05:20 | PC.NURSE ---
Shift note ([id number]): Patient pleasant, alert and oriented.?Independent in room. Reports tolerating pain rated 2/10. No Bowel movements this shift. VSS.?
[2025-05-09 06:11] LABS: Hematocrit* 36.7 % (37.0-53.0); Hemoglobin* 12.5 gm/dL (13.5-17.5); Mean Corpuscular HGB Conc 34 gm/dL (32-36); Mean Corpuscular Hemoglobin 33 pg (26-34); Mean Corpuscular Volume 95 fL (80-100); Red Blood Count* 3.85 m/uL (4.30-5.90); White Blood Count* 11.23 K/uL (4.50-11.00)
[2025-05-09 06:30] LABS: Chloride* 102 mmol/L (96-114); Potassium* 3.6 mmol/L (3.6-5.1); Slide Review Reflex No; Sodium* 133 mmol/L (135-149)
[2025-05-09 06:33] LABS: Anion Gap 4 mEq/L (7-15); Blood Urea Nitrogen* 16 mg/dL (7-30); Carbon Dioxide* 27 mmol/L (20-32); Creatinine* 1.2 mg/dL (0.5-1.5); Est. Creatinine Clearance* 50.21; Estimated Glomerular Filt Rate 64 ml/min
[2025-05-09 06:34] LABS: Calcium* 8.2 mg/dL (8.4-10.6); Glucose* 98 mg/dL (60-115)
[2025-05-09 08:03] VITALS: BP 140/62; PULSE 69; RESP 16; TEMP 36.8; O2SAT 95
[2025-05-09] MEDS: LOSARTAN POTASSIUM 50 MG TABLET 100 MG PO (08:54)
[2025-05-09] MEDS: OMEPRAZOLE 20 MG CAPSULE DR PO (08:55)
[2025-05-09] MEDS: AMLODIPINE 5 MG TABLET PO (08:55)
[2025-05-09] MEDS: SENNOSIDES/DOCUSATE TABLET 2 TAB PO (08:55)
[2025-05-09] MEDS: SODIUM CHLORIDE 0.9 % (FLUSH) 10 ML SYRINGE 5 ML IVF (08:55)
--- NOTE | 2025-05-09 16:57 | PM.DS1 ---
DS: Providers Provider Date Seen: 05/09/25 Date of admission: 05/06/25 18:40 Primary care physician: Mackenzie Denise CNP Admitting Clinician: Adriana Way MD Attending Physician on discharge: Rafal Garcia MD Date of Discharge: 05/09/25 DS: Diagnosis Discharge Diagnosis (1) Pancreatitis: Status: Acute Problem details: -1st episode. Lipase 7171, recheck in a.m. -NPO, IVF -pain and nausea management as needed -ultrasound ordered for morning -consider General Surgery consult if new or worsening symptoms, no improvement, or acute findings following ultrasound -despite paucity of findings and CT scan of abdomen and pelvis and abdominal ultrasound, symptoms are persistent, therefore will proceed with MRCP 05/07/2025 -MRCP 05/07/2025 demonstrates mild pancreatitis and duodenitis apparently without stones. -tolerated increased diet (2) Duodenitis: Status: Acute Problem details: -management as above -says he takes a baby ASA daily but I don't see this on his list. Otherwise denies regular NSAID use -IV PPI initially, changed to oral PPI on 05/08/2025 -H pylori ordered, but still awaiting stool sample -consider treatment for Helicobacter pylori duodenitis if Helicobacter pylori antigen is positive - did not produce a stool sample for us while in hospital and thus ordered this as an outpatient study (3) Tobacco use: Status: Acute Problem details: -advised on cessation of tobacco use (4) Hypertension: Status: Acute Problem details: -continue home medications, daughter is getting pill bottles to confirm -we are holding the chlorthalidone given it is reported association with possible acute pancreatitis (5) Overweight: Status: Acute (6) Gastroesophageal reflux: Status: Acute Problem details: -hold home PPI, continue with IV PPI -change to oral PPI on 05/08/2025 DS: Summary Hospital Course Hospital Course: Admission history of present illness: ?70 year old male past medical history significant for hypertension, GERD, carotid atherosclerosis, hyperlipidemia is admitted to the medical floor from the ED for further management acute pancreatitis. ?Patient is seen with daughter at bedside. Patient reports onset of abdominal pain early this morning, waking him from sleep. Centralized, bloated. Did eat breakfast but not has not eaten since. Feeling hungry now. Denies any nausea or vomiting. No change in stools. Last BM was this morning. No recent fevers. No UTI symptoms. No previous episodes. No abdominal surgeries. No recent medication changes nor no new medications. ?No alcohol use. Chews tobacco. PCP is Karishma Forrester PA-C in [facility]. Full code? 05/07/2025, hospital day 2. Awakened around 3 in the morning on 05/06/2025 with abdominal pain off and on since. Despite not eating or drinking he has persistent abdominal discomfort. Attempted sips of clear liquids this morning which made his abdominal pain worse. Does obtain relief with analgesics. No need for antiemetics. No recent trauma, injury, infection. No recent travel. No recent fever, rigors, diaphoresis. Passing flatus and stool. Passing urine without difficulties. No recent weight gain or weight loss. Although he has no new medications, he does take chlorthalidone for his blood pressure management. Chlorthalidone has historically been implicated as a cause for pancreatitis in rare situations. This is presently on hold. 05/08/2025, hospital day 3. Patient indicates discomfort in abdomen is persistent but much less than yesterday. No longer having the tenderness in his abdomen as he had yesterday. Tolerating soft diet without nausea, vomiting, or worsening of abdominal pain. Tolerating increased activities. Passing flatus. Still has not had a bowel movement. 05/09/2025, hospital day 4. Tolerated increased diet. Still unable to obtain a stool sample. Ordered this as an outpatient study. Consider treatment for Helicobacter pylori infection he red occasion if stool study for Helicobacter pylori antigen is positive. Status at Discharge Functional status at discharge: independent ambulation Overall status at discharge: patient is progressing back to baseline Time Spent with Patient Time attestation: Total time spent providing and/or coordinating discharge services: Time spent: Greater than 30 minutes Exam Narrative: Exam Narrative: Examined patient in his hospital room. Vision and hearing are adequate. Alert and oriented x4. Friendly, articulate, cooperative. He likes to kid around with those near him. Appears comfortable and in no acute distress. Lungs clear to auscultation. Heart tones with regular rhythm. Abdomen is mildly distended but with active bowel sounds, soft, nontender. Independent with transfer, station, and gait. Const: Vital Signs, click to edit/add: Vital Signs - 24 hr 05/08/25 19:00 05/08/25 23:50 05/09/25 04:13 Temperature 98.7 F 98.3 F 98.6 F Pulse Rate [Pulse Oximeter] 75 74 72 Respiratory Rate 18 20 18 Blood Pressure [Le ft Arm] 102/52 L 102/57 L 133/67 Pulse Oximetry 93 93 93 Oxygen Delivery Me thod Room Air Room Air Room Air 05/09/25 08:03 Temperature 98.2 F Pulse Rate [Pulse Oximeter] 69 Respiratory Rate 16 Blood Pressure [Le ft Arm] 140/62 H Pulse Oximetry 95 Oxygen Delivery Me thod Room Air DS: Data Data Completed and Pending Labs on day of discharge: Labs from last 24 hours 05/09/25 05:52 WBC 11.23 H RBC 3.85 L Hgb 12.5 L Hct 36.7 L MCV 95 MCH 33 MCHC 34 Plt Count 219 Sodium 133 L Potassium 3.6 Chloride 102 Carbon Dioxide 27 Anion Gap 4 L BUN 16 Creatinine 1.2 Estimated Creat Clear 50.21 Estimated GFR 64 Glucose 98 Calcium 8.2 L Lipase [address] scan - abdomen: Attestation: I have reviewed the pertinent imaging results. Radiologist's impression: FINDINGS: Mild subpleural ground-glass, likely atelectasis or scarring. Liver is unremarkable. Gallbladder is partially distended. No biliary ductal dilatation. Spleen is unremarkable. There is mild stranding along the head uncinate and proximal body of the pancreas as evidence for pancreatitis. Inflammation extends to the pancreatico duodenal groove. No peripancreatic fluid collection. No main ductal dilatation. The adrenal glands are unremarkable. The kidneys are unremarkable. Urinary bladder is partially distended. Mass effect on the posterior bladder wall from an enlarged prostate. Colonic diverticulosis is seen without CT evidence of acute diverticulitis. The appendix is nondilated. The terminal ileum is nondilated. The remainder of the small bowel is unremarkable. A small hiatal hernia is present. There is focal thickening and stranding of the 3rd and 4th portion of the duodenum. This is evidence for duodenitis. This is likely secondary to pancreatitis although indeterminate. A small amount of fluid is seen tracking along the undersurface of the duodenum and along the right peritoneal reflection (series 2, image 71). No organized drainable fluid collection. No gross free air is seen. No lymphadenopathy is seen. Prostatomegaly is again noted. Small fat containing left inguinal hernia. Extensive atherosclerosis is seen within a nondilated aorta. Bone windows demonstrate no suspicious lytic or sclerotic lesion. No fracture IMPRESSION: 1. Focal thickening and stranding of the head/uncinate of the pancreas as well as the mid and distal duodenum as evidence for pancreatitis and duodenitis. It is uncertain which is primary. A small amount of fluid is seen along the undersurface of the duodenum tracking along the right peritoneal reflection. No organized drainable abscess. No gross free air. US - abdomen: Radiologist's impression: Impression: 1. Normal appearing gallbladder. Wall thickness is normal at 2 millimeters. No intramural edema. No sludge, calculus, pericholecystic fluid or reported sonographic Bettencourt`s sign. 2. Normal caliber common bile duct at 4 millimeters. MRCP: Radiologist's impression: FINDINGS: Lungs: Left basal atelectasis. No pleural or pericardial effusion. Small hiatal hernia. Liver: Hepatic steatosis. Biliary tree and gallbladder: No intra or extrahepatic biliary dilation. The common bile duct measures up to 3 mm. Fluid-filled gallbladder without stones. Spleen: Unremarkable Pancreas: Similar mild stranding about the pancreatic head/uncinate process. No pancreatic duct dilation. No definite evidence of pancreatic necrosis or mass within the limitation of noncontrast exam. No peripancreatic fluid collection. Adrenal glands: Unremarkable. Kidneys and ureters: No definite renal masses or hydronephrosis. GI tract: No evidence of obstruction or inflammation. Vasculature: The IVC and aorta are normal in caliber. Lymph nodes: No lymphadenopathy. Abdominal wall: Unremarkable Bones: Degenerative change of the imaged spine. IMPRESSION: 1. Similar mild stranding about the pancreatic head/uncinate process suggestive of acute interstitial edematous pancreatitis. Please correlate with lipase. No definite evidence of pancreatic necrosis or mass within the limitation of noncontrast exam. Recommend repeat imaging following resolution of acute episode to exclude possibility of underlying mass. 2. Hepatic steatosis. 3. No biliary dilation. Unremarkable gallbladder. Discharge Plan Discharge Disposition: Home, Self-Care Date of Admission: 05/06/25 18:40 Attending Provider on Discharge: Rafal Garcia Primary Care Provider: Mackenzie Denise Condition: Improved Anticipated Discharge Date/Time: 05/09/25 12:30 Discharge Medications: Continued lansoprazole 30 mg capsule,delayed release(DR/EC) 30 mg PO DAILY amlodipine 5 mg tablet 5 mg PO DAILY multivitamin [Multiple Vitamins] Tablet 1 tab PO QAM doxazosin 8 mg tablet 8 mg PO HS rosuvastatin 10 mg tablet 10 mg PO HS losartan 100 mg tablet 100 mg PO DAILY Patient Comments: couldn't confirm if taking, on pcp list, filled October 21, 2024 Discontinued chlorthalidone 25 mg tablet 12.5 mg PO QAM Discharge Orders: Discharge Order (Routine); Ordered 05/09/25 Ordered By: Rafal Garcia Patient Education: Pancreatitis (DC), How to Quit Using Smokeless Tobacco (DC), Duodenitis (DC) Additional Instructions: 1. Follow-up with your primary director of home care hospice in 5-10 days - NOTE: chlorthalidone was stopped during hospitalization due to known potential to cause acute pancreatitis. 2. Collect and bring in stool sample for testing for Helicobacter Pylori antigen testing, with results to your primary director of home care hospice Mackenzie Denise CNP. If result is positive, then you may need to take a medication regimen designed to eradicate this infection. 3. Return to clinic or hospital sooner if needed. Activity Level: No Restrictions and Activity as Tolerated Discharge Diet: 2 gm Sodium Follow Up Appointments: Mackenzie Denise CNP [Primary Care Provider, Family Practice] Referral Note: You will need to call [facility] Sunday morning (05-11) to schedule an appointment. The phone number for [facility] is [phone]. Forms: [facility] Belongings, [facility] Info Instructions
== END 2025-05-09 13:05 | disposition home or self-care (01) | DRG 440 ==
LOC: ED 16:17 → MEDSURG 16:52
PROVIDERS: Internal Medicine; Physician Assistant; Admitting Provider Family Medicine; Emergency Provider Family Medicine; PCP Nurse Practitioner; Visit Provider Family Medicine
DX: K85.90 Acute pancreatitis without necrosis or infection, unspecified (principal); K29.80 Duodenitis without bleeding; I10 Essential (primary) hypertension; E66.3 Overweight; K21.9 Gastro-esophageal reflux disease without esophagitis; Z68.33 Body mass index [BMI] 33.0-33.9, adult; E78.5 Hyperlipidemia, unspecified; I65.29 Occlusion and stenosis of unspecified carotid artery; Z72.0 Tobacco use
CPT/HCPCS: 36415; 74177; 74181; 76705; 80048; 80053; 80076; 82565; 83605; 83690; 84484; 85025; 85027; 86140; 87338; 93005; 94761; 99284; 99285; A9270; J0131; J1171; J1650; J2270; J2405; J2470; J7030; Q9967

== ENCOUNTER 2025-05-20 09:09 | Outpatient (REF) | payer MEDICARE, BC, SELFPAY ==
--- OUTSIDE RECORDS SUMMARY | 2025-05-18 07:33 | XMS_ITS | Continuity of Care Document ---
Author Organization [facility] Address [address] [address] [place] [address] Phone Care Team Providers Care Respiratory Scientist Name Role Phone Helena RODARTE, Whitney Unavailable Unavailable Allergies, Adverse Reactions, Alerts Substance Reaction Status Criticality methotrexate Active No Information pneumococcal vaccine Active No Info rmation trimethoprim Active No Information sulfamethoxazole Active No Informat ion gabapentin Active No Information DIOSMIN Active No Information cefazolin Active No Information metoprolol Active No Information Oxpvhdc-SPT-XqF Reductase Inhibitors Acti ve No Information doxycycline HivesHives Active No Information ATORVASTATIN CALCIUM Muscle pain Active No Info rmation Medications Medication Instructions Dosage Effective Dates (start - stop) Status Comments prednisone 10 mg tablet Take 3 tabs for 4 weeks then 2 tabs for 4 weeks then 1 tab for 2 weeks - Active prednisone 20 mg tablet take 2 tablet by oral route every day for up to 3 months - Active tamoxifen 10 mg tablet take 1 tablet by oral route 2 times every day in the morning and evening 10 MG - Active Co Q-10 100 mg capsule take 1 Capsule by Oral route every other day - Active Metamucil 0.4 gram capsule Two tabs daily. - Active sertraline 100 mg tablet take 2 tablet by oral route every day 200 MG - Active Multivitamin unknown Oral once daily. - Active VITAMIN B-12 (unknown strength) 1 tab daily. Not Available - Active IBGARD (unknown strength) 2 tabs before each meal. Not Available - Active Herbal Medications/Supple ments unknown medical marijuana - Active aspirin 81 mg chewable tablet chew 1 tablet by oral route every day 81 MG - Active Flonase Allergy Relief 50 mcg/actuation nasal spray,suspension spray 1 - 2 spray by intranasal route every day in each nostril as needed 50-100 MCG - Active lisinopril 10 mg tablet take 1 tablet by oral route every day 10 MG - Active rosuvastatin 10 mg tablet take 1 tablet by oral route every day 10 MG - Active sildenafil 100 mg tablet take 1 tablet by oral route every day as needed approximately 1 hour before sexual activity 100 MG - Active PREDNISONE (unknown strength) take 1 tablet by oral route every day 2mg Not Available - Active prednisone 10 mg tablet Take 3 tabs for 4 weeks then 2 tabs for 4 weeks then 1 tab for 2 weeks - No Longer Active Procedures Procedure Date Offic/outpt E&m Estab Moderate Complex e/m visit add on Offic/outpt E&m Estab Low Complex e/m visit add on Offic/outpt E&m Estab Low Colonoscopy Flex; W/remov Les- 25 Colonoscopy Flex; W/bx 1/mx Level Iv-surg Path Gross/micro 25 Offic/outpt E&m Estab Mod-hi 2 25 Ugi Endo; W/bx 1/mx Level Iv-surg Path Gross/micro 25 Advance Directives Directive Yes / No Effective Date File Name No Information Encounters Encounter Description Practice Location Reason(s) For Visit Diagnoses Date Provider Providers Copied on Encounter [facility] [address] [address], [place], [id number], [place] tel:[phone] [facility] No Information 5 Helena Olson. [address], [place], [place], [address] , [place]. tel: [phone] [facility], [address] [address], [place], [place], [address], [place] tel:[phone] [facility] No Information 5 Helena Olson. [address], [place], [place], [id number] , [place]. tel: [phone] [facility], [address] [address], [place], [address], [place] tel:[phone] [facility] No Information 5 Helena Olson. [address], [place], [place], [address] , [place]. tel: [phone] Offic/outpt E&m Estab Moderate [facility], [address] [address], [place], [address], [place] tel:[phone] [facility] GI Symptoms or Concerns (chief complaint) Previous History Review (chief complaint) Sclerosing mesenteritisGastrop aresisNausea 5 Helena Olson. [address], [place], [place], [address] , [place]. tel: [phone] Zechariah Ashley MD. [phone] erring Provider: Referral Self, USE FOR SELF REFERRALS. [facility], [address] [address], [place], [address], [place] tel:[phone] [facility] No Information 5 Dar Morelos. [address], [place], [place], [address] , [place]. tel: [phone] Offic/outpt E&m Estab Low [facility], [address] [address], [place], [address], [place] tel:[phone] [facility] GI Symptoms or Concerns (chief complaint) Gastroparesis 5 Dar Morelos. [address], [place], [place], [address] , [place]. tel:[phone] Zechariah Ashley MD. tel:[phone] erring Provider: Referral Self, USE FOR SELF REFERRALS. Offic/outpt E&m Estab Low [facility], [address] [address], [place], [address], [place] tel:[phone] [facility] GI Symptoms or Concerns (chief complaint) Previous History Review (chief complaint) GastroparesisAbnorm al findings on diagnostic imaging of abdomen 5 Helena Olson. [address], [place], [place], [address] , [place]. tel: [phone] Zechariah Ashley MD. tel:[phone] erring Provider: Referral Self, USE FOR SELF REFERRALS. [facility], [address] [address], [place], [address], [place] tel:[phone] [facility] Ab[address] scan 5 Helena Olson. [address], [address], [place], [place], [address] , [place]. tel: [phone] [facility], [address] [address], [place], [address], [place] tel:[phone] [facility] Mesenteric mass 5 Helena Olson. [address], [address], [place], [place], [address] , [place]. tel:[phone] Zechariah Ashley MD. tel:[phone] [facility], [address] [address], [place], [address], [place] tel:[phone] [facility] Screening ColonoscopyColorect al polyp detected on colonoscopyHemorrho ids, internalChange in bowel habitBenign neoplasm of sigmoid colonBenign neoplasm of transverse colonBenign neoplasm of ascending colon Nov- 5 Edilberto Resendiz. [address] [place] [address], [facility] [address], [facility] [place], [address] , [place]. [phone] Zechariah Ashley MD. tel:[phone] erring Provider: Referral Self, USE FOR SELF REFERRALS. Offic/outpt E&m Estab Mod-hi 2 [facility], [address] [address], [place], [place], [address], [place] tel:[phone] [facility] GI Symptoms or Concerns (chief complaint) Upper abdominal painBloatingNauseaW eight lossColon cancer screeningChange in bowel habitsAbnormal CT scan Nov-0 5 Helena Olson. [address] [place] [address], [facility] [address], [facility] [place], [address] , [place]. [phone] Zechariah Ashley MD. tel:[phone] erring Provider: Referral Self, USE FOR SELF REFERRALS. [facility], [address] [address], [place], [place], [address], [place] tel:[phone] [facility] GI Symptoms or Concerns (chief complaint) GERD without esophagitisUpper abdominal painHeartburnGastro -esophageal reflux disease without esophagitis 5 Edilberto Resendiz. [address] [place] [address], [facility] [address], [place], [place], [address] , [place]. [phone] Zechariah Ashley MD. tel:[phone] erring Provider: Zechariah Ashley MD, [address] [place], [address]. tel:[phone] [facility], [address] [address], [place], [place], [address], [place] tel:[phone] [facility] No Information 5 Shaquille Tolliver. [address], [facility] [address], [place], [place], [address] , . tel:[phone] Family History Family Member Type Diagnosis Age At Onset Father Problem (finding) Gallbladder disease Father Problem (finding) Cancer, esophageal Father Problem (finding) GERD Sister Problem (finding) Cancer, lung Brother Problem (finding) Cancer, lung Immunizations Vaccine Date Status Comments Influenza, high-dose, split virus, trivalent, injectable, preservative free administered Note: [facility] bi-direct ional interface ; Source: Other Registry SARS-COV-2 (COVID-19) vaccin e, mRNA, spike protein, LNP, preservative free, marietta-sucrose, 30 mcg/0.3 mL dose administered Note: [facility] bi-direct ional interface ; Source: Other Registry SARS-COV-2 (COVID-19) vaccin e, mRNA, spike protein, LNP, preservative free, marietta-sucrose, 30 mcg/0.3 mL dose administered Note: [facility] bi-direct ional interface ; Source: Other Registry Influenza, high-dose, split virus, trivalent, injectable, preservative free administered Note: [facility] bi-direct ional interface ; Source: Other Registry SARS-COV-2 (COVID-19) vaccin e, mRNA, spike protein, LNP, preservative free, marietta-sucrose, 30 mcg/0.3 mL dose administered Note: [facility] bi-direct ional interface ; Source: Other Registry Influenza, high-dose, split virus, quadrivalent, injectable, preservative free administered Note: [facility] bi-direct ional interface ; Source: Other Registry tetanus toxoid, reduced diphtheria toxoid, and acellular pertussis vaccine, adsorbed administered Note: [facility] b i-directional interface ; Source: Other Registry SARS-COV-2 (COVID-19) vaccin e, mRNA, spike protein, LNP, bivalent, preservative free, 30 mcg/0.3 mL dose, marietta-sucrose formulation administered Note: [facility] bi-direct ional interface ; Source: Other Registry Influenza, adjuvanted, inactivated, quadrivalent, injectable, preservative free administered Note: [facility] bi-directional interface ; Source: Other Registry SARS-COV-2 (COVID-19) vaccin e, mRNA, spike protein, LNP, preservative free, 30 mcg/0.3mL dose administered Note: [facility] bi-direct ional interface ; Source: Other Registry Influenza, high-dose, split virus, trivalent, injectable, preservative free administered Note: [facility] bi-direct ional interface ; Source: Other Registry SARS-COV-2 (COVID-19) vaccin e, mRNA, spike protein, LNP, preservative free, 30 mcg/0.3mL dose administered Note: [facility] bi-direct ional interface ; Source: Other Registry SARS-COV-2 (COVID-19) vaccin e, mRNA, spike protein, LNP, preservative free, 30 mcg/0.3mL dose administered Note: [facility] bi-direct ional interface ; Source: Other Registry Influenza, high-dose, split virus, quadrivalent, injectable, preservative free administered Note: [facility] bi-direct ional interface ; Source: Other Registry Influenza, high-dose, split virus, trivalent, injectable, preservative free administered Note: [facility] bi-direct ional interface ; Source: Other Registry Pneumovax 23 administered Note: [facility] bi-d irectional interface ; Source: Other Registry Influenza administered Note: [facility] bi-d irectional interface ; Source: Other Registry Prevnar 13 administered Note: [facility] bi-d irectional interface ; Source: Other Registry Influenza, split virus, trivalent, injectable, contains preservative administered Note: [facility] bi-direct ional interface ; Source: Other Registry Influenza, high-dose, split virus, trivalent, injectable, preservative free administered Note: [facility] bi-direct ional interface ; Source: Other Registry Afluria Qd administered Note: [facility] bi-directional interface ; Source: Other Registry zoster vaccine, live administered Note: [facility] bi-directional interface ; Source: Other Registry zoster vaccine, live administered Note: [facility] bi-directional interface ; Source: Other Registry influenza virus vaccine, unspecified formulation administered Note: [facility] bi-di rectional interface ; Source: Other Registry tetanus toxoid, reduced diphtheria toxoid, and acellular pertussis vaccine, adsorbed administered Note: [facility] b i-directional interface ; Source: Other Registry tetanus toxoid, reduced diphtheria toxoid, and acellular pertussis vaccine, adsorbed administered Note: [facility] b i-directional interface ; Source: Other Registry Influenza, split virus, trivalent, injectable, contains preservative administered Note: [facility] bi-direct ional interface ; Source: Other Registry Novel [id number], injectable administered Note: [facility] bi-direct ional interface ; Source: Other Registry Influenza, split virus, trivalent, injectable, contains preservative administered Note: [facility] bi-direct ional interface ; Source: Other Registry Influenza, split virus, trivalent, injectable, contains preservative administered Note: [facility] bi-direct ional interface ; Source: Other Registry Influenza, split virus, trivalent, injectable, contains preservative administered Note: [facility] bi-direct ional interface ; Source: Other Registry Influenza, split virus, trivalent, injectable, contains preservative administered Note: [facility] bi-direct ional interface ; Source: Other Registry Payers Payer name Insurance type Covered green party ID Authoriza tion(s) No Information Social History Type Description Quantity Date Captured Comments Alcohol Use Details Unknown Caffeine Use Details Unknown Tobacco Use Status Smoking Status No Information Sex Male Chief Complaint And Reason For Visit No Information Reason For Referral Reason For Referral No Information Plan Of Treatment Date Type Action Status Referral Ordered: Chromogranin A Appointment date/timeframe: 01/02/2025 ordered Referral Ordered: 5-HIAA Qn,Random Urine Appointment date/timeframe: 01/02/2025 ordered Referral Ordered: Colonoscopy Appointment date/timeframe: 11/27/2024 ordered Referral Ordered: Gastric Emptying Study (4 Hours) Appointment date/timeframe: 12/16/2024 ordered Appointment Francisco Silva BOOKED History Of Present Illness Encounter Date Complaint History Of Prese nt Illness GI Symptoms or Concerns HPI: Dilia gutierrez is a 70-year-old male who presents today for follow-up of sclerosing mesenteritis and gastroparesis.Patient accompanied by today.He reports he is doing excellent. He says that he is feeling better than he has felt in years. He is not sure if this is related to the prednisone that he is taking or tamoxifen regardless he feels great. He has no symptoms no morning nausea and generally is very happy.He recently had a phone consultation with his manager china for which he was on 2 mg of prednisone daily and at this time was recommended to continue management for sclerosing mesenteritis and follow-up 1 planning to wean off prednisone.Denies fevers, chills, abdominal pain, n/v/d/c, wt loss, loss of appetite, blood in stool. Previous History Review Summary of records reviewed: Patient was initially evaluated by myself in clinic on 12/09/2024 for ongoing right upper quadrant pain and sometimes epigastric discomfort which have been unresponsive to omeprazole and pantoprazole and at subsequent normal upper endoscopy along with symptoms that he described as a flulike illness of weakness and fatigue, alternating bowel habits and 25 to 30 pound weight loss over the course of 8 months. He had been evaluated in the emergency room where he had a normal CBC and CMP but he underwent a CT scan that showed nonspecific but potentially concerning mesenteric panniculitis/sclerosing mesenteritis versus lymphoproliferative disease. His abdominal exam was notable for dilated bowels and tender to palpation and he subsequently underwent colonoscopy with findings of 3 adenomatous polyps and normal random colon biopsies though this was complicated by intramural hemorrhage of the transverse colon for which she was treated with Cipro Flagyl. He did have a gastric emptying study completed as well which was consistent with gastroparesis. And a repeat CAT scan about a month later from the original CAT scan was notable for about a month later from the original CAT scan was notable for mesenteric nodular masses 3.3 x 1.5 in the mesentery which after my discussion with interventional radiology at [facility] was concerning for potential neoplastic process, potentially a carcinoid (chromogranin elevated but 5HIAA normal) and as such he did undergo IR guided biopsy. Unfortunately this was quite challenging procedure and the tissue obtained was nonspecific and there were no neoplastic cells as there was not enough tissue to fully evaluate this. As such after discussing with both patient and I referred him to surgical oncology at [facility] to consider surgical biopsy. Patient subsequently underwent diagnostic laparoscopy which was notable for prominent small bowel mesenteric nodule/mass and upon resection of nodules there was loss of perfusion to localize area of small bowel approximately 3 inches which was subsequently resected. B iopsy confirmed sclerosing mesenteritis. Jh singh was then most recently evaluated in clinic on 04/16/2025 by Carolyn Dodge NP at which time he was started on prednisone 40 mg daily and tamoxifen 10 mg twice daily for biopsy-proven diagnosis of sclerosing mesenteritis (after discussion with myself).Past medical hx:AdrenomyeloneuropathyDemyelinating disease of central nervous systemDepressionRheumatoid on prednisone 3 mg X 1.5 years Past surgical hx:appendectomy Relevant Endoscopic hx:10/15/2024–mild linear antral erythema with biopsies stomach negative for H. pylori and normal duodenum.Colonoscopy was 10 years ago - no prior polyps 11/27/2024 colonoscopy 3 TA, normal random colon biopsySocial hx:Vapes nicotine Rare cigarMinimal EtOH On medical marijuana for years - for neuropathy and nausea Family hx:No Colon cancer, IBD Father w/ esophagus cancer GI Symptoms or Concerns Francisco Silva is a 70-year-old male who presents today for follow-up regarding sclerosing mesenteritis and gastroparesis. Patient presents today with his .Patient was recently evaluated in November of this year for ongoing right upper quadrant abdominal pain as well as epigastric discomfort that did not improve with omeprazole or pantoprazole. Had a normal EGD. Also reported flulike symptoms of weakness and fatigue. He was seen in the emergency department where a CT scan showed nonspecific but potentially concerning mesenteric panniculitis/sclerosing mesenteritis versus lymphoproliferative disorder. Subsequently underwent colonoscopy with findings of 3 adenomatous polyps and normal random colon biopsies though this was complicated by intramural hemorrhage of the transverse colon for which she was treated with Cipro Flagyl. He did have a gastric emptying study completed as well, with retention of 26% at 4 hours.Approximately a month after his original CT scan he underwent a repeat which was notable for mesenteric nodular masses 3.3 x 1.5 in the mesentery which after my discussion with interventional radiology at [facility] was concerning for potential neoplastic process, potentially a carcinoid (chromogranin elevated but 5HIAA normal) and as such he did undergo IR guided biopsy. Unfortunately this was quite challenging procedure and the tissue obtained was nonspecific and there were no neoplastic cells as there was not enough tissue to fully evaluate this.He was then referred to oncology at which point he was starting to feel improved. Therefore he was given the option between forming a CT scan in 6 to 8 weeks or undergoing a minimally invasive laparoscopic biopsy. He subsequently had his repeat CT scan 01/23/2025 showing waxing and waning mesenteric mateo masses with central mesenteric haziness and reportedly remained indeterminate. Decision was subsequently made for him to undergo laparoscopic biopsy which was completed on 03/26/2025. Intraoperative findings were notable for prominent small bowel mesentery with nodule/mass. Upon resection of one of the nodules the local small bowel loss perfusion due to disruption of the mesentery and therefore 3 inches of small bowel resection was performed. Patient again presents in clinic today stating in terms of his gastroparesis, nausea and vomiting he feels that his symptoms are well-controlled. His weight is continue to be stable and he continues to get good fiber while also avoiding raw vegetables, avoiding foods that cause a lot of gas, becoming more active, and taking IBgard and FDgard as needed.Continues to smoke marijuana. As we discussed further it appears seems to be his classic cycle where he has periods where he feels much better like everything is improving and then will suddenly have days to weeks where he just feels awful and starts to lose drastic amount of weight again. As such we have discussed the importance of getting a diagnosis with what we have seen on CT in order to determine how to appropriately manage this.Patient is scheduled to meet with Dr. Brown regarding his sclerosing mesenteritis 05/04/2025, however he states he has had increased fatigue and weakness and therefore decided to return to GI clinic early. He reports that his bowel movements have returned to normal having 1 formed BM per day. Denies any hematochezia, melena, fever, and chills. Does have some mild nausea but this usually occurs when once per week. Also has some decreased appetite, but states this has been ongoing for many months, and has not changed. Previous History Review Past med ical hx:AdrenomyeloneuropathyDemyelinating disease of central nervous systemDepressionRheumatoid on prednisone 3 mg X 1.5 years Past surgical hx:appendectomy Relevant Endoscopic hx:10/15/2024–mild linear antral erythema with biopsies stomach negative for H. pylori and normal duodenum.Colonoscopy was 10 years ago - no prior polyps 11/27/2024 colonoscopy 3 TA, normal random colon biopsySocial hx:Vapes nicotine Rare cigarMinimal EtOH On medical marijuana for years - for neuropathy and nausea Family hx:No Colon cancer, IBD Father w/ esophagus cancer GI Symptoms or Concerns HPI: Dilia gutierrez is a 69-year-old male who presents today for follow-up.Patient presents today with his . Overall he is feeling much better than weight loss above. He reports his weight is stabilizing and his symptoms are significantly improved by increasing fiber, avoiding raw vegetables, avoiding foods that cause a lot of gas, becoming more active, and taking IBgard as needed. He has not changed his marijuana intake. As we discussed further it appears seems to be his classic cycle where he has periods where he feels much better like everything is improving and then will suddenly have days to weeks where he just feels awful and starts to lose drastic amount of weight again. As such we have discussed the importance of getting a diagnosis with what we have seen on CT in order to determine how to appropriately manage this.Denies fevers, chills, abdominal pain, n/v/d/c, wt loss, loss of appetite,Summary of records reviewed: Patient was initially evaluated by myself in clinic on 12/09/2024 for ongoing right upper quadrant pain and sometimes epigastric discomfort which have been unresponsive to omeprazole and pantoprazole and at subsequent normal upper endoscopy along with symptoms that he described as a flulike illness of weakness and fatigue, alternating bowel habits and 25 to 30 pound weight loss over the course of 8 months. He had been evaluated in the emergency room where he had a normal CBC and CMP but he underwent a CT scan that showed nonspecific but potentially concerning mesenteric panniculitis/sclerosing mesenteritis versus lymphoproliferative disease. His abdominal exam was notable for dilated bowels and tender to palpation and he subsequently underwent colonoscopy with findings of 3 adenomatous polyps and normal random colon biopsies though this was complicated by intramural hemorrhage of the transverse colon for which she was treated with Cipro Flagyl. He did have a gastric emptying study completed as well which was consistent with gastroparesis. And a repeat CAT scan about a month later from the original CAT scan was notable for about a month later from the original CAT scan was notable for mesenteric nodular masses 3.3 x 1.5 in the mesentery which after my discussion with interventional radiology at [facility] was concerning for potential neoplastic process, potentially a carcinoid (chromogranin elevated but 5HIAA normal) and as such he did undergo IR guided biopsy. Unfortunately this was quite challenging procedure and the tissue obtained was nonspecific and there were no neoplastic cells as there was not enough tissue to fully evaluate this. As such after discussing with both patient and I referred him to surgical oncology at [facility] to consider surgical biopsy. GI Symptoms or Concerns HPI: Dilia gutierrez is a 69-year-old male who presents today for follow-up following endoscopic evaluation. This is his first visit to clinic.Reports he has stomach pains that causes him to feel like he has the flu all the time, weak, fatigue, alternating bowel habits. Symptoms started in Jun 2024 - Stomach pain is primarily in RUQ primarily right under rib and sometimes but rarely epigastric. which is constant but can change in intensity which improves with peptobismal up to 3-4 times a day. Reports symptoms have not changed on omperazole and pantoprazole. Worse with palpation. Seems to be more of a dull sensation rather than sharp - described as that feeling you get when you are sick. - Also reports bloating and poor appetite and sensation of fullness. Has also nausea and is about equal to bloating.Overall has had multiple tests completed but no answers or relief. Per review of [facility] records has never had tick testing despite symptoms starting during deer hunting and living in an area with high population of ticks. Reports some days are better than others. Notes that he has been on medical marijuana for years and reports he has great relief from it. Denies fevers, chills, vomiting, blood in stoolsSummary of records reviewed: Patient was first evaluated by us as a referral for endoscopic evaluation for heartburn, abdominal pain unresponsive to treatment, diarrhea rule out celiac sprue with Dr. Casanova on 10/15/2024 during which he was only noted to have mild linear antral erythema with biopsies negative for H. pylori and a normal duodenal with biopsies negative for celiac sprue.Patient presented to [facility] on 11/14/2024 for right upper quadrant abdominal pain persistent since June 2024 and unimproving despite above recommendations for switching from pantoprazole but pain seem to be worsening at the time that there was some concern for cholecystitis given 25 pound weight loss which is why he went to the ER. Vitals in the ER were normal as were CBC and CMP. Right upper quadrant ultrasound was also normal without evidence of gallstones. CT with IV contrast notable for 2 mm interpolar left renal stone that was nonobstructing, prominent/enlarged mid mesenteric lymph nodes largest measuring 13 x 26 mm and associated with groundglass/vish mesentery with relative sparing around the lymph nodes thought to reflect some underlying mesenteric panniculitis/sclerosing mesentery spectrum versus infectious versus lymphoproliferative origins.Past medical hx:AdrenomyeloneuropathyDemyelinating disease of central nervous systemDepressionRheumatoid on prednisone 3 mg X 1.5 years Past surgical hx:appendectomy Relevant Endoscopic hx:10/15/2024 m ild linear antral erythema with biopsies stomach negative for H. pylori and normal duodenum.Colonoscopy was 10 years ago - no prior polyps Social hx:Vapes nicotine Rare cigarMinimal EtOH On medical marijuana for years - for neuropathy and nausea Family hx:No Colon cancer, IBD Father w/ esophagus cancer GI Symptoms or Concerns Functional Status Date Functional Assessmen t No Information Medications Administered Medication Instructions Dosage Effective Dates (start - stop) Status Comments prednisone 10 mg tablet Take 3 tabs for 4 weeks then 2 tabs for 4 weeks then 1 tab for 2 weeks - No Longer Active Instructions Date Instruction Additional Infor heath Continue prednisone 40 mg once daily for a full 3 months, plan to taper over 3 months pending continued symptom resolution Continue tamoxifen 10 mg once daily, plan to continue for maintenance Per review of recommendations there is no recommendation to repeat imaging to confirm resolution but rather focus on symptom control and management with above medications. 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 You will taper down off this, but will discuss further at your follow-up appointment- Follow-up with Dr. Malik on 05/04/2025HOW TO REACH [place] can reach me by sending a message through your patient portal or calling my patient coordinator at [phone]. [phone] Related to Gastroparesis Continue IBgard as needed Gastroparesis diet Follow-up with surgical oncology as referred to determine next steps/hopeful biopsy of lesionFollow-up pending results of biopsy Related to Gastroparesis Colon Cancer Prevention Related to Colorectal polyp detected on colonoscopy Hemorrhoids Related to Color ectal polyp detected on colonoscopy High Fiber Diet Related to Color ectal polyp detected on colonoscopy Colon Polyps Related to Color ectal polyp detected on colonoscopy Trial FD guard and/or IBgard Recommend checking for tickborne illnesses with PCP Continue vanessa tablets for nausea Gastric emptying study Colonoscopy - will see if insurance covers sutab, if not reglan to be given with prep Repeat CT scan with IV contrast in 4 weeks to assess for changes in lymph nodes and rule out possible lymphoma/lymphoproliferative disease He has been on prednisone 3 mg for many years for his rheumatoid and if symptoms persistent with persistent findings of sclerosing mesenteritis versus mesenteric panniculitis would consider trial of prednisone 40 mg daily with azathioprine 2 to 2.5 mg/kg/day x 3 months and if sustained clinical/symptomatic response then wean prednisone off As an alternative would also consider discussing weaning off marijuana for at least a 6-month period to see if there is any improvement in his symptomsFollow-up upon completion of workup Related to Upper abdominal pain Assessments Type Assessment Date No Information Patient Care Teams Name Effective Dates (start - stop) Status Members No Information
[2025-05-20 10:14] LABS: H pylori Ag Stool* Negative (Negative)
--- OUTSIDE RECORDS SUMMARY | 2025-05-21 00:13 | XMS_ITS | Encounter Summary ---
Author Organization [facility] Address [address] [place] [address] Care Team Providers Care Flarer Name Role Phone Karishma Forrester P.A.-C. Primary Care Pro vider Reason for Visit * Reason Comments Med Refill Encounter Details Date Type Department Care Team (Late st Contact Info) Description 04/10/2025 Refill Department of Community Internal Medicine in [place], [place] [address] [place] [phone] Karishma Forrester MPAS, P.A.-CLizandro [address] [place] [phone] Med Refill Social History Tobacco Use Types Packs/Day Years Used Date Smoking Tobacco: Former Cigarettes 0.5 30 0 08/20/1970 - 08/20/2000 Smokeless Tobacco: Current Chew Alcohol Use Standard Drinks/Week Comments No 0 (1 standard drink = 0.6 oz pure alcohol) History of heavy alcohol use. Sober since 1981. [facility] Utilities Answer Date Recorded In the past 12 months has [facility] [employer], gas, oil, or water [employer] threatened to shut off services in your [...] your living situation today? I have a [facility] place to live 02/27/2024 Education Answer Date Recorded What is the highest level of school you have completed or the highest degree you have received? 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 [address] [place] [phone] PCP - General Internal Medicine 08/15/22 documented as of this encounter
--- OUTSIDE RECORDS SUMMARY | 2025-05-21 00:14 | XMS_ITS | Encounter Summary ---
Author Organization [facility] Address [address] [place] [address] Care Team Providers Care Regulatory Affairs Manager Name Role Phone Karishma Forrester P.A.-C. Primary Care Pro vider Reason for Visit * Reason Comments Med Refill Encounter Details Date Type Department Care Team (Late st Contact Info) Description 05/14/2025 Refill Department of Community Internal Medicine in [place], [place] [address] [place] [phone] Karishma Forrester MPAS, P.A.-CLizandro [address] [place] [phone] Med Refill Social History Tobacco Use Types Packs/Day Years Used Date Smoking Tobacco: Former Cigarettes 0.5 30 0 08/20/1970 - 08/20/2000 Smokeless Tobacco: Current Chew Alcohol Use Standard Drinks/Week Comments No 0 (1 standard drink = 0.6 oz pure alcohol) History of heavy alcohol use. Sober since 1981. [facility] Utilities Answer Date Recorded In the past 12 months has [facility] [employer], gas, oil, or water [employer] threatened to shut off services in your [...] your living situation today? I have a [facility] place to live 02/27/2024 Education Answer Date Recorded What is the highest level of school you have completed or the highest degree you have received? 12th grade 09/21/2019 Sex and Gender Information Value Date Recorded Sex Assigned at Male 11/16/2017 9:03 AM CDT Legal Sex Male 9:55 AM HUMAN RESOURCES MANAGER Gender Identity Male 11/16/2017 9:03 AM CDT Sexual Orientation Straight 11/16/2017 9: 03 AM CDT documented as of this encounter Miscellaneous Notes * Telephone Encounter - Tessa Martinez - 05/18/2025 11:09 AM CDT Called patient. He is aware that he needs labs and a physical. He just lost his so he will be calling us back later to schedule. documented in this encounter Plan of Treatment Not on file documented as of this encounter Visit Diagnoses Not on filedocumented in this encounter Additional Health Concerns Assessment Noted Time PHQ-9 Depression Total Score: 0 09/25/19 20 8:13 AM HUMAN RESOURCES MANAGER documented as of this encounter Care Teams Regulatory Affairs Manager Relationship Specialty Start Date End Date Karishma Forrester MPAS, P.A.-C. [address] [place] [address] [place] [phone] PCP - General Internal Medicine 08/15/22 documented as of this encounter
--- OUTSIDE RECORDS SUMMARY | 2025-05-21 00:14 | XMS_ITS | Clinical Summary ---
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 Opportunity for questionswas provided and informed consent obtained. The endoscope [id number] was passed through the anus andadvanced to the cecum, identified by appendiceal orifice and ileocecal valve.The colonoscopy was performed with ease. The patient tolerated theprocedure well. The quality of the bowel preparation was evaluated using theBBPS (Marshallberg Bowel Preparation Scale) with scores of: Right [...] MEDICARE PART B HB ONLY BLUE CROSS [place] BLUE HB ONLY Advance Directives * Full Code (Latest Code Status on File) Date Activated Date Inactivated Comments 04/10/2023 7:23 AM 04/10/2023 12:44 PM Question Answer Comments Code Status Discussion: Reviewed Preferences * Full Code Date Activated Date Inactivated Comments 02/11/2018 10:41 AM 02/11/2018 6:56 PM Care Teams Color Finisher Relationship Specialty Start Date End Date Karishma Forrester PA-C [address] [place] [phone] PCP - General Physician Security Operations Manager 03/23/23
--- OUTSIDE RECORDS SUMMARY | 2025-05-21 00:14 | XMS_ITS | Clinical Summary ---
Author Organization [facility] Address [address] [place] [address] Care Team Providers Care Security Director Name Role Phone Karishma Forrester P.A.-C. Primary Care Pro vider Source Comments Patient records contain information from all sites at [facility]. For routine questions regarding patient records, call [phone] during business hours, M-F 8:00 AM - 5:00 PM Central Time. Record requests for emergency care only can be directed to [phone] at any time.[facility] Allergies Active Allergy Reactions Criticality Noted Date [...] BEDTIME . 90 tablet 3 5 Active lansoprazole (Prevacid) [address] capsule Take 1 capsule (30 mg total) by mouth daily. Patient needs Office Visit for further refills. 90 capsule 5 Active chlorthalidone (Hygroton) 25 mg tablet Take 0.5 tablets (12.5 mg total) by mouth daily. Patient needs Office Visit and Labs for further refills. 15 tablet 5 Active lansoprazole (Prevacid) [address] capsule TAKE ONE CAPSULE BY MOUTH ONCE EVERY DAY 90 capsule 3 4 025 Discontinued chlorthalidone (Hygroton) 25 mg tablet Take 0.5 tablets (12.5 mg total) by mouth daily. 15 tablet 5 025 Discontinued Active Problems Patient Care Coordination No te Formatting of this note migh t be different from the original. 11/16/2017- Release of information signed for patient's , Polly. This will be good for life unless [...] change Assessment & Plan (10/12/2020 1:27 AM QUALITY ASSURANCE GROUP LEADER): --recommend 5-10% weight loss, diet and exercise modifications --repeat A1C/fasting glucose and lipids in 3 months after lifestyle change Elevated Prostate-Specific Antigen 11/24/2017 Overview (10/12/2020): Images from the original note were not included. Assessment & Plan (10/12/2020 1:03 AM QUALITY ASSURANCE GROUP LEADER): Elevated PSA due to prostatitis in 2016. [...] symptom of bloating was normal. EGD at [facility] on 09/28/2014, which was unremarkable. GI discussed with him about aerophagia and recommended sleep study at that time. Periodic surveillance for nutrient deficiencies related to PPI therapy: mag, iron, calcium, B12 Assessment & Plan (03/27/2022 10:08 AM CDT): --continue omeprazole --check phos, Mag, CBC, ferritin Assessment & Plan (10/12/2020 1:08 AM QUALITY ASSURANCE GROUP LEADER): Assess GERD at follow up. Polyp Colon Adenomatous Personal History 017 Overview (03/03/2024): Colonoscopy 01/2018, h/o tubular adenoma. Colonoscopy completed April 08, 2023 with a recommended 7 year follow-up Assessment & Plan (10/12/2020 1:25 AM QUALITY ASSURANCE GROUP LEADER): Repeat colonoscopy 01/2023 Hypertensive Chronic Kidney Disease [...] 110-130. Assessment & Plan (10/12/2020 1:16 AM QUALITY ASSURANCE GROUP LEADER): Bps <140/90. He has CKD which may be related to hypertension. Continue amlodipine 5mg daily, Hctz 25mg daily. Check urine microalbumin. If present, add RIMMA/ARB Benign Prostatic Hyperplasia Hypertrophy With Ob struction 11/19/2016 Overview (12/12/2021): Doxazosin 8mg started 2010 for BPH. Assessment & Plan (12/12/2021 2:56 PM CDT): Continue Doxazosin 8mg daily at bedtime. Assessment & Plan (10/12/2020 1:03 AM QUALITY ASSURANCE GROUP LEADER): Minimal symptoms. Continue Doxazosin 8mg daily at bedtime. Hyperlipidemia 11/19/2016 Overview (03/27/2022): ASCVD risk 20% 09/2020. Stress Echo 12/2020 negative for ischemia. Rosuvastatin 10mg started 03/2022. Assessment & Plan (10/12/2020 1:24 AM QUALITY ASSURANCE GROUP LEADER): I recommend statin therapy and we will address this at follow up. LDL 151, ASCVD risk 20% Occlusion And Stenosis Bilateral Carotid Arterie s 07/31/2011 Overview (08/09/2023): US Carotid 2008 IMPRESSION: 1. No evidence of hemodynamically significant [...] (01/07). Assessment & Plan (10/12/2020 1:18 AM QUALITY ASSURANCE GROUP LEADER): Optimize Bps, annual labs, eval for proteinuria, avoid NSAIDs/nephrotoxic meds Nicotine Dependence Other To bacco Product With Other Nicotine Induced Disorder 01/30/2018 Chronic Obstructive Pulmonary Disease 01/30/2018 12/12/2021 Overview (12/12/2021): No evidence for COPD on PFTs 11/2020. Assessment & Plan (10/12/2020 1:17 AM QUALITY ASSURANCE GROUP LEADER): PFTs to further evaluate. This could be [...] Encounters Date Type Department Care Team Description 05/14/2025 Refill Department of Community Internal Medicine in [address] [phone] Karishma Forrester MPAS, P.A.-C. Med Refill 05/02/2025 Refill Department of Community Internal Medicine in [place], [place] [address] [place] [phone] Karishma Forrester MPAS, P.A.-C. Med Refill 04/15/2025 Clinical Communication Department of Community Internal Medicine in [address] [phone] Karishma Forrester MPAS, P.A.-C. Health Maintenance 04/10/2025 Refill Department of Community Internal Medicine in [place], [place] [address] [place] [phone] Karishma Forrester MPAS, P.A.-C. Med Refill 03/24/2025 [...] of heavy alcohol use. Sober since 1981. [facility] Utilities Answer Date Recorded In the past 12 months has [facility] [employer], oil, or water [employer] threatened to shut off services in your [...] your living situation today? I have a [facility] place to live 02/27/2024 Education Answer Date Recorded What is the highest level of school you have completed or the highest degree you have received? 12th grade 09/21/2019 Sex and Gender Information Value Date Recorded Sex Assigned at Male 11/16/2017 9:03 AM CDT Legal Sex Male 9:55 AM QUALITY ASSURANCE GROUP LEADER Gender Identity Male 11/16/2017 9:03 AM CDT Sexual Orientation Straight 11/16/2017 9: 03 AM CDT Last Filed Vital Signs Vital Sign Reading Time Taken Comments Blood Pressure 114/71 03/04/2024 8:46 AM CDT Pulse 64 03/04/2024 8:46 AM CDT Temperature 36.5 C (97.7 F) 03/04/2024 8:46 AM CDT Respiratory Rate 20 11/20/2023 3:24 PM CDT Oxygen Saturation 98% 10/04/2021 10:15 AM QUALITY ASSURANCE GROUP LEADER Inhaled Oxygen Concentration - - Weight 96 [...] this topic Medical Devices Implanted Type Area Paper Stacker Device Identifier Shelf Expiration Date Model / [...] AM CDT COLONOSCOPY Routine 07/31/2012 8:26 AM QUALITY ASSURANCE GROUP LEADER CT ABDOMEN PELVIS ENTEROGRAPHY WITH IV CONTRAST [...] equation. Cholesterol, HDL 36(L) >=40 mg/dL 01/31/20 1:30 PM CDT OWAT Cholesterol, Non-HDL, Calculated [...] DOLAN, P.A.-C. LAB BLOOD ADD-ON Final Result [facility] [address], [place] [address], [facility] OWAT [facility] [place] [address] [place] [id number] * (ABNORMAL) Basic Metabolic Panel (01/31/2024 8:40 [...] DOLAN, P.A.-C. LAB BLOOD ADD-ON Final Result [facility] [address] [place] [address], [place] OWAT [facility] [place] [address] [place] [address] * HCV Ab w/Reflex to HCV PCR, S (medicare) (11/27/2016 10:43 AM CDT) HXHCV Ab [facility] Negative Negative POWERCHART Comment: Aqbzjk-up-zqbgsh ratio is <1.00. Test Performed by: [facility] [place] [address] Blood 11/27/2016 10:4 3 AM CDT us Brea Adrian M.D. LAB MICROBIOLOGY - BLOOD ORDERAB LES Final Result Performing Organization Address City/[facility]/ZIP Co de Phone Number POWERCHART * Colonoscopy (07/31/2012 8:26 AM QUALITY ASSURANCE GROUP LEADER) Anatomical Region Laterality Modality Other 07/31/2012 8:26 AM QUALITY ASSURANCE GROUP LEADER us Mitchell Adams M.D., M.H.P.E. GI PROCEDURE ORD ERABLES Final Result * CT Abdomen Pelvis Enterography with IV [...] RODARTE [id number] 14-Nov-2007 16:41 Linn Yuan MD. [id number] 16:41 Stew La M.D. [facility] CT PROCEDURES Final Result from Last 3 Months or Most Recently Relevant to Health Maintenance Insurance MEDICARE [facility] [place] [address] Care Teams Security Director Relationship Specialty Start Date End Date Karishma Forrester MPAS, P.A.-C. [address] [place] [address] [place] [phone] PCP - General Internal Medicine 08/15/22
--- OUTSIDE RECORDS SUMMARY | 2025-05-21 00:14 | XMS_ITS | Encounter Summary ---
Author Organization [facility] Address [address] [place] [address] Care Team Providers Care Voting Machine Repairer Name Role Phone Karishma Forrester P.A.-C. Primary Care Pro vider Reason for Visit * Reason Onset Date Comments Health Maintenance 04/15/2025 Encounter Details Date Type Department Care Team (Latest Contact Info) Description 04/15/2025 Clinical Communication Department of Community Internal Medicine in [place], [place] [address] [place] [phone] Karishma Forrester MPAS PLizandroALizandro-CLizandro [address] [place] [phone] Health Maintenance Social History Tobacco Use Types Packs/Day Years Used Date Smoking Tobacco: Former Cigarettes 0.5 30 0 08/20/1970 - 08/20/2000 Smokeless Tobacco: Current Chew Alcohol Use Standard Drinks/Week Comments No 0 (1 standard drink = 0.6 oz pure alcohol) History of heavy alcohol use. Sober since 1981. [facility] Utilities Answer Date Recorded In the past 12 months has [employer], gas, oil, or water [employer] threatened to shut off services in your [...] your living situation today? I have a [facility] place to live 02/27/2024 Education Answer Date Recorded What is the highest level of school you have completed or the highest degree you have received? 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 [address] [place] [phone] PCP - General Internal Medicine 08/15/22 documented as of this encounter
--- OUTSIDE RECORDS SUMMARY | 2025-05-21 00:14 | XMS_ITS | Encounter Summary ---
Author Organization [facility] Address [address] [place] [address] Care Team Providers Care Scrap Hooker Name Role Phone Karishma Forrester P.A.-C. Primary Care Pro vider Reason for Visit * Reason Comments Med Refill Encounter Details Date Type Department Care Team (Late st Contact Info) Description 05/02/2025 Refill Department of [facility] in [place], [place] [address] [place] [id number] Karishma Forrester MPAS, P.A.-CLizandro [address] [place] [phone] Med Refill Social History Tobacco Use Types Packs/Day Years Used Date Smoking Tobacco: Former Cigarettes 0.5 30 0 08/20/1970 - 08/20/2000 Smokeless Tobacco: Current Chew Alcohol Use Standard Drinks/Week Comments No 0 (1 standard drink = 0.6 oz pure alcohol) History of heavy alcohol use. Sober since 1981. [facility] Utilities Answer Date Recorded In the past 12 months has [facility] [employer], gas, oil, or water [employer] threatened to shut off services in your [...] AM CDT Legal Sex Male 9:55 AM WELFARE ANALYST Gender Identity Male 11/16/2017 9:03 AM CDT [...] Total Score: 0 09/25/19 20 8:13 AM WELFARE ANALYST documented as of this encounter Care Teams Scrap Hooker Relationship Specialty Start Date End Date Karishma Forrester MPAS, P.A.-C. [address] [place] [phone] PCP - General Internal Medicine 08/15/22 documented as of this encounter
== END 2025-05-20 09:10 | disposition home or self-care (01) ==
LOC: NPINS 09:09
PROVIDERS: PCP Nurse Practitioner; Visit Provider Internal Medicine
DX: K29.80 Duodenitis without bleeding (principal)
CPT/HCPCS: 87338